=== PATIENT | male | born 1965 | race Hispanic/Latino ===

== ENCOUNTER 2019-10-04 22:02 | Inpatient (IN) | payer OTHER, SELFPAY ==
[2019-10-05 03:33] LABS: Basophils % (Auto) 0.5 % (0.0-1.8); Eosinophils % (Auto) 0.6 % (0.0-4.3); Hematocrit 39.1 % (35.5-45.6); Hemoglobin 13.1 gm/dl (11.8-15.2); Lymphocytes # (Auto) 1.2 K/mm3 (1.2-5.4); Mean Corpuscular HGB Conc 34 % (32-34); Mean Corpuscular Volume 90 fl (84-94); Monocytes # (Auto) 0.4 K/mm3 (0.0-0.8); Monocytes % (Auto) 6.2 % (0.0-7.3); Platelet Count 297 K/mm3 (140-440); Red Blood Count 4.36 M/mm3 (3.65-5.03); Red Cell Distribution Width 13.9 % (13.2-15.2)
[2019-10-05 03:42] LABS: BUN/Creatinine Ratio 12; Blood Urea Nitrogen 7 mg/dL (9-20); Hemolysis Index 0
--- NOTE | 2019-10-05 05:15 | Cat Scan Report ---
Head CT without intravenous contrast INDICATION: Weakness times one day COMPARISON: None FINDINGS: The ventricles are normal in size and position. No hemorrhage or extra-axial fluid collecti on. No edema or mass effect. No focal infarct seen. Portions of the sinuses visualized are clear. No skull fracture identified. IMPRESSION: Negative head CT Automated exposure control was utilized to diminish radiation dose Signer Name: Massimo Ríos MD Signed: 10/05/2019 5:11 AM Workstation Name: [id number]
[2019-10-05 05:18] LABS: Amphetamine Screen,Urine PRESUMPTIVE NEGATIVE; Benzodiazepines Screen,Urine PRESUMPTIVE NEGATIVE; Cannabinoid Screen,Urine PRESUMPTIVE NEGATIVE; Methadone Screen,Urine PRESUMPTIVE NEGATIVE; Opiate Screen,Urine PRESUMPTIVE NEGATIVE
--- NOTE | 2019-10-05 05:24 | Emergency Department Report ---
Chief Complaint: Hyperglycemia Stated Complaint: HYPERGLYCEMIA, LEFT ARM NUMBNESS Time Seen by Provider: 10/05/19 02:53 - HPI History of Present Illness: Patient presents with multiple complaints. Left arm weakness and numbness that has been going on for 1 week. History of IV drug abuse. History of surgery to "clean out infection" to the left arm at [facility] in 2019. Complains of uncontrolled blood sugar. Patient admits to recent cocaine and IV heroin abuse and requesting detox/rehabilitation. - Exam Vital Signs: Vital Signs 10/04/19 22:14 Temperature 97.7 F Pulse Rate 76 Respiratory 18 Rate Blood Pressure 147/90 O2 Sat by Pulse 98 Oximetry MSE screening note: Focused history and physical exam performed. Due to findings the following was ordered: ED Medical Decision Making - Lab Data Result diagrams: 10/05/19 03:10 10/05/19 03:10 ED Disposition for MSE Condition: Stable Referrals: PRIMARY CARE [Primary Care Provider] - 3-5 Days
[2019-10-05 05:53] LABS: Cocaine Screen,Urine PRESUMPTIVE POSITIVE
--- NOTE | 2019-10-05 06:30 | Emergency Department Report ---
HPI - General Chief Complaint: Hyperglycemia Time Seen by Provider: 10/05/19 02:53 - HPI HPI: Room 19 The patient is a 54-year-old male present with a chief complaint of left hand weakness. The patient states he has had intermittent weakness of the left hand since June 2019. The patient states he is also had episodes of intermittent dysarthria for the past couple weeks. Patient states he has had numbness in his left upper extremity and right hand for 1 month but for the past 2 to 3 weeks the weakness in his left hand has been constant. ED Past Medical Hx - Past Medical History Hx Diabetes: Yes (diet controlled) Hx COPD: Yes Additional medical history: HEPATITIS C, Pancreatitis - Surgical History Hx Cholecystectomy: Yes Hx Appendectomy: Yes Additional Surgical History: rhinoplasty, left shoulder surgery - Family History Family history: no significant - Social History Smoking Status: Current Every Day Smoker (1 pack/day) Substance Use Type: Cocaine, Heroin (+ IVDA) - Medications Home Medications: Home Medications Medication Instructions Recorded Confirmed Last Taken Type Albuterol Sulfate [Proventil HFA] 1 - 2 puff IH Q4H PRN #1 hfa.aer.ad 11/13/13 11/21/13 Unknown Rx Azithromycin [Zithromax Z-KISHORE] 250 mg PO DAILY #4 tablet 11/13/13 11/21/13 Unknown Rx Fluticasone/Salmeterol [Advair 1 puff IH BID #1 disk.w.dev 11/13/13 11/21/13 Unknown Rx Diskus 250-50 mcg] Mirtazapine [Remeron] 30 mg PO QHS PRN #10 tab.rapdis 11/13/13 11/21/13 Unknown Rx Mometasone Furoate [Nasonex] 2 spray NS QDAY #1 bottle 11/13/13 11/21/13 Unknown Rx Nicotine [Habitrol] 21 mg TD QDAY #14 patch 11/13/13 11/21/13 Unknown Rx Omeprazole Magnesium [Prilosec Otc] 20 mg PO QDAY #30 tablet. 11/13/13 11/21/13 11/20/13 Rx Oxycodone HCl [Oxycodone] 10 mg PO Q6H PRN #15 tablet 11/13/13 11/21/13 Unknown Rx Potassium Chloride [K-Dur] 20 meq PO QDAY #30 tablet 11/13/13 11/21/13 Unknown Rx Thiamine [Vitamin B-1] 100 mg IV QDAY #30 vial 11/13/13 11/21/13 Unknown Rx atenoloL [Tenormin] 50 mg PO QDAY #30 tablet 11/13/13 11/21/13 Unknown Rx ED Review of Systems ROS: Stated complaint: HYPERGLYCEMIA, LEFT ARM NUMBNESS Other details as noted in HPI Constitutional: no symptoms reported Eyes: denies: eye pain ENT: denies: throat pain Respiratory: no symptoms reported Cardiovascular: denies: chest pain Endocrine: no symptoms reported Gastrointestinal: denies: abdominal pain Genitourinary: denies: dysuria Musculoskeletal: myalgia Neurological: weakness, numbness, other (Dysarthria) Physical Exam - Physical Exam Vital Signs: Vital Signs 10/04/19 22:14 Temperature 97.7 F Pulse Rate 76 Respiratory 18 Rate Blood Pressure 147/90 O2 Sat by Pulse 98 Oximetry Physical Exam: GENERAL: The patient is well-developed male lying on stretcher not appearing to be in acute distress HEENT: Normocephalic. Atraumatic. Extraocular motions are intact. Patient has moist mucous membranes. NECK: Trachea midline CHEST/LUNGS: Clear to auscultation. There is no respiratory distress noted. HEART/CARDIOVASCULAR: Regular. There is no tachycardia. There is no gallop rub or murmur. ABDOMEN: Abdomen is soft, nontender. Patient has normal bowel sounds. There is no abdominal distention. SKIN: There is no rash. There is no edema. There is no diaphoresis. NEURO: The patient is awake, alert, and oriented. The patient is cooperative. Cranial nerves II through XII grossly intact. The patient has normal speech. Patient has 3+/5+ drag out worker on the left, 5+/5+ drag out worker on the right. Patient unable to make completely closed fist on the left. NIHSS= 2 MUSCULOSKELETAL: There is no evidence of acute injury. ED Course Vital Signs 10/04/19 22:14 Temperature 97.7 F Pulse Rate 76 Respiratory 18 Rate Blood Pressure 147/90 O2 Sat by Pulse 98 Oximetry ED Medical Decision Making - Lab Data Result diagrams: 10/05/19 03:10 10/05/19 03:10 Laboratory Tests 03/04/20 03/05/20 03/05/20 22:29 03:10 03:10 WBC 6.6 RBC 4.36 Hgb 13.1 Hct 39.1 MCV 90 MCH 30 MCHC 34 RDW 13.9 Plt Count 297 Lymph % (Auto) 18.0 [place] % (Auto) 6.2 Eos % (Auto) 0.6 Baso % (Auto) 0.5 Lymph # 1.2 [place] # 0.4 Eos # 0.0 Baso # 0.0 Seg Neutrophils % 74.7 H Seg Neutrophils # 5.0 VBG pH Sodium 134 L Potassium 4.1 Chloride 97.3 L Carbon Dioxide 23 Anion Gap 18 BUN 7 L Creatinine 0.6 L Estimated GFR > 60 BUN/Creatinine Ratio 12 Glucose 287 H POC Glucose 297 H Calcium 9.0 TSH Urine Opiates Screen Urine Methadone Screen Ur Barbiturates Screen Ur Phencyclidine Scrn Ur Amphetamines Screen U Benzodiazepines Scrn Urine Cocaine Screen U Marijuana (THC) Screen Drugs of Abuse Note Plasma/Serum Alcohol 10/05/19 10/05/19 10/05/19 03:10 03:10 04:00 WBC RBC Hgb Hct MCV MCH MCHC RDW Plt Count Lymph % (Auto) [place] % (Auto) Eos % (Auto) Baso % (Auto) Lymph # [place] # Eos # Baso # Seg Neutrophils % Seg Neutrophils # VBG pH 7.437 H Sodium Potassium Chloride Carbon Dioxide Anion Gap BUN Creatinine Estimated GFR BUN/Creatinine Ratio Glucose POC Glucose Calcium TSH 0.738 Urine Opiates Screen Presumptive negative Urine Methadone Screen Presumptive negative Ur Barbiturates Screen Presumptive negative Ur Phencyclidine Scrn Presumptive negative Ur Amphetamines Screen Presumptive negative U Benzodiazepines Scrn Presumptive negative Urine Cocaine Screen Presumptive positive U Marijuana (THC) Screen Presumptive negative Drugs of Abuse Note Disclamer Plasma/Serum Alcohol 10/05/19 04:11 WBC RBC Hgb Hct MCV MCH MCHC RDW Plt Count Lymph % (Auto) [place] % (Auto) Eos % (Auto) Baso % (Auto) Lymph # [place] # Eos # Baso # Seg Neutrophils % Seg Neutrophils # VBG pH Sodium Potassium Chloride Carbon Dioxide Anion Gap BUN Creatinine Estimated GFR BUN/Creatinine Ratio Glucose POC Glucose Calcium TSH Urine Opiates Screen Urine Methadone Screen Ur Barbiturates Screen Ur Phencyclidine Scrn Ur Amphetamines Screen U Benzodiazepines Scrn Urine Cocaine Screen U Marijuana (THC) Screen Drugs of Abuse Note Plasma/Serum Alcohol < 0.01 - EKG Data -: EKG Interpreted by [place] EKG shows normal: sinus rhythm Rate: normal - EKG Data When compared to previous EKG there are: previous EKG unavailable Interpretation: other (No ischemic changes seen) - Radiology Data Radiology results: report reviewed (CT head), image reviewed (CT head) Findings [facility] [address] [place] [address] Cat Scan Report Signed Patient: ALLA MENDOZA MR#: [id number] : 1965 Acct:[id number] Age/Sex: 54 / M ADM Date: 10/04/19 Loc: ED Attending Dr: Ordering Physician: TRACY WELCH DO Date of Service: 10/05/19 Procedure(s): CT head/brain wo con Accession Number(s): [id number] cc: TRACY WELCH DO Head CT without intravenous contrast INDICATION: Weakness times one day COMPARISON: None FINDINGS: The ventricles are normal in size and position. No hemorrhage or extra-axial fluid collection. No edema or mass effect. No focal infarct seen. Portions of the sinuses visualized are clear. No skull fracture identified. IMPRESSION: Negative head CT Automated exposure control was utilized to diminish radiation dose Signer Name: Massimo Ríos MD Signed: 10/05/2019 5:11 AM Workstation Name: [id number] Transcribed By: GIOVANNI Dictated By: Massimo Ríos MD Electronically Authenticated By: Massimo Ríos MD Signed Date/Time: 10/05/19510 DD/ 0508 TD/TT: - Differential Diagnosis TIAs, CVA, carpal tunnel syndrome Critical care attestation.: If time is entered above; I have spent that time in minutes in the direct care of this critically ill patient, excluding procedure time. ED Disposition Clinical Impression: Left hand weakness, Neurological deficit, transient Disposition: DC-09 OP ADMIT IP TO THIS HOSP Is pt being admited?: Yes Does the pt Need Aspirin: Yes Condition: Fair Referrals: PRIMARY CARE, [Primary Care Provider] - 3-5 Days Time of Disposition: 07:15 (Hospitalist paged)
[2019-10-05] MEDS ORDERED: ASPIRIN 325 MG TAB PO ONE (06:31)
[2019-10-05] MEDS ORDERED: ONDANSETRON 4 MG ODT TAB PO ONE (07:32)
[2019-10-05] MEDS ORDERED: PROMETHAZINE 25 MG RECT SUPP PR PRN (09:10)
[2019-10-05] MEDS ORDERED: ACETAMINOPHEN 325 MG TAB PO PRN ×2 (09:10)
[2019-10-05] MEDS ORDERED: METOCLOPRAMIDE 10 MG TAB PO PRN (09:10)
[2019-10-05] MEDS ORDERED: MAGNESIUM HYDROXIDE (MOM) ORAL LIQD UDC PO PRN (09:10)
[2019-10-05] MEDS ORDERED: ONDANSETRON 4 MG/2 ML INJ IV PRN ×2 (09:10)
[2019-10-05] MEDS ORDERED: ASPIRIN 325 MG TAB PO SCH (10:00)
[2019-10-05] MEDS ORDERED: ENOXAPARIN 100 MG/1 ML INJ SUB-Q SCH (10:00)
[2019-10-05] MEDS ORDERED: AZITHROMYCIN 250 MG TAB PO SCH (10:00)
[2019-10-05] MEDS ORDERED: THIAMINE 100 MG in SODIUM CHLORIDE 0.9% 50 ML IV SCH (10:00)
[2019-10-05] MEDS ORDERED: THIAMINE 200 MG/2 ML VIAL IV SCH (10:00)
[2019-10-05] MEDS ORDERED: FAMOTIDINE 20 MG/2 ML INJ IV SCH (10:00)
[2019-10-05] MEDS: NICOTINE 21 MG/24 HR PATCH TD SCH (10:22)
[2019-10-05] MEDS: FAMOTIDINE 20 MG TAB PO SCH ×2 (10:23→21:17)
[2019-10-05] MEDS: AZITHROMYCIN 250 MG TAB PO SCH (10:23)
[2019-10-05] MEDS: atenoloL 50 MG TAB PO SCH (10:24)
[2019-10-05] MEDS: ENOXAPARIN 40 MG/0.4 ML INJ SUB-Q SCH (10:25)
[2019-10-05] MEDS: INSULIN REGULAR, HUMAN 100 UNITS/1 ML SUB-Q SCH ×3 (12:40→21:18)
[2019-10-05] MEDS ORDERED: LORazepam 2 MG TAB PO PRN (13:46)
[2019-10-05] MEDS ORDERED: LORazepam 2 MG/ML VIAL IV PRN (13:46)
[2019-10-05 15:29] LABS: Alanine Aminotransferase 19 units/L (7-56); Albumin 3.8 g/dL (3.9-5)
[2019-10-05] MEDS: oxyCODONE /ACETAMINOPHEN 5-325MG TAB PO PRN (15:32)
[2019-10-05] MEDS: LORazepam 2 MG TAB PO PRN ×2 (15:32→21:29)
[2019-10-05 15:34] LABS: Bilirubin,Direct < 0.2 mg/dL (0-0.2)
[2019-10-05] MEDS: QUEtiapine 25 MG TAB PO SCH ×2 (15:34→21:17)
[2019-10-05] MEDS: LORazepam 2 MG/ML VIAL IV PRN (17:36)
--- NOTE | 2019-10-05 19:46 | History and Physical Report ---
History of Present Illness Date of examination: 10/05/19 Date of admission: 10/05/19 07:20 Chief complaint: Left hand weakness and numbness. Inability to move her hand. History of present illness: 54-year-old male with a history of diabetes hypertension presents to the emergency department with left hand weakness with minimal improvement over the past 2 to 3 weeks. Patient describes as intermittent. Was in the opposite right hand and resolved and now persistent in the left hand. Patient stated he had a brace there. Patient at present denies any headaches now. Patient states no vision changes just fatigue at present. No chest pain no abdominal pain. P atient does give a history of drinking up until today. As well as using heroin and cocaine. On a regular basis. Patient had CT scan in the ER which consistent with global atrophy. Patient was then evaluated for TIA rule out CVA. Upon evaluation and continued history. Patient also gives a history of shooting up in left hand wrist area. Patient denied fever chills no cough no nausea vomiting at present. Past History Past Medical History: diabetes, hypertension. denies: acute ND, atrial fib, arrhythmia, anemia, CAD, cancer, COPD, dialysis, DVT, ESRD, heart failure, hepatitis, HIV/AIDS, hyperthyroidism, hyperlipidemia, hypothyroidism, liver disease, migraines, PVD, pulmonary embolism, renal failure, seizures, stroke, sarcoidosis Past Surgical History: No surgical history. denies: abd. aortic aneurysm repair, , hysterectomy Social history: single, Lives alone, smoking, alcohol abuse, IV drug use, full code Family history: hypertension Medications and Allergies Allergies Allergy/AdvReac Type Severity Reaction Status Date / Time No Known Allergies Allergy Verified 10/05/19 08:03 Home Medications Medication Instructions Recorded Confirmed Last Taken Type Albuterol Sulfate [Proventil HFA] 1 - 2 puff IH Q4H PRN #1 hfa.aer.ad 11/13/13 11/21/13 Unknown Rx Azithromycin [Zithromax Z-KISHORE] 250 mg PO DAILY #4 tablet 11/13/13 11/21/13 Unknown Rx Fluticasone/Salmeterol [Advair 1 puff IH BID #1 disk.w.dev 11/13/13 11/21/13 Unknown Rx Diskus 250-50 mcg] Mirtazapine [Remeron] 30 mg PO QHS PRN #10 tab.rapdis 11/13/13 11/21/13 Unknown Rx Mometasone Furoate [Nasonex] 2 spray NS QDAY #1 bottle 11/13/13 11/21/13 Unknown Rx Nicotine [Habitrol] 21 mg TD QDAY #14 patch 11/13/13 11/21/13 Unknown Rx Omeprazole Magnesium [Prilosec Otc] 20 mg PO QDAY #30 tablet. 11/13/13 11/21/13 11/20/13 Rx Oxycodone HCl [Oxycodone] 10 mg PO Q6H PRN #15 tablet 11/13/13 11/21/13 Unknown Rx Potassium Chloride [K-Dur] 20 meq PO QDAY #30 tablet 11/13/13 11/21/13 Unknown Rx Thiamine [Vitamin B-1] 100 mg IV QDAY #30 vial 11/13/13 11/21/13 Unknown Rx atenoloL [Tenormin] 50 mg PO QDAY #30 tablet 11/13/13 11/21/13 Unknown Rx Active Meds: Active Medications Acetaminophen (Tylenol) 650 mg PO Q4H PRN PRN Reason: Pain MILD(1-3)/Fever >100.5/PRECIADO Aspirin (Ecotrin) 325 mg PO QDAY [facility] Atenolol (Tenormin) 50 mg PO QDAY [facility] Last Admin: 10/05/19 10:24 Dose: 50 mg Documented by: Azithromycin (Zithromax) 250 mg PO DAILY [facility] Stop: 10/08/19 10:01 Last Admin: 10/05/19 10:23 Dose: 250 mg Documented by: Bisacodyl (Dulcolax) 10 mg DE QDAY PRN PRN Reason: Constipation Enoxaparin Sodium (Enoxaparin) 40 mg SUB-Q QDAY@1000 [facility] Last Admin: 10/05/19 10:25 Dose: 40 mg Documented by: Famotidine (Pepcid) 20 mg PO BID [facility] Last Admin: 10/05/19 10:23 Dose: 20 mg Documented by: Thiamine HCl 100 mg/ Sodium (Chloride) 51 mls @ 100 mls/hr IV QDAY [facility] Stop: 10/06/19 06:00 Last Admin: 10/05/19 10:26 Dose: 100 mls/hr Documented by: Insulin Human Regular (Humulin R) 0 units SUB-Q ACHS [facility]; Protocol Last Admin: 10/05/19 17:32 Dose: 3 units Documented by: Lorazepam (Ativan) 4 mg IV Q1H PRN PRN Reason: [facility] 16-25 Lorazepam (Ativan) 4 mg PO Q1H PRN PRN Reason: [facility]- 16-25 Lorazepam (Ativan) 2 mg PO Q1H PRN PRN [facility] Last Admin: 10/05/19 15:32 Dose: 2 mg Documented by: Lorazepam (Ativan) 2 mg IV Q1H PRN PRN Reason: [facility] 8-15 Last Admin: 10/05/19 17:36 Dose: 2 mg Documented by: Magnesium Hydroxide (Milk Of Magnesia) 30 ml PO Q4H PRN PRN Reason: Constipation Metoclopramide HCl (Reglan) 10 mg PO Q6H PRN PRN Reason: Nausea And Vomiting Nicotine (Habitrol) 21 mg TD QDAY [facility] Last Admin: 10/05/19 10:22 Dose: 21 mg Documented by: Ondansetron HCl (Zofran) 4 mg IV Q8H PRN PRN Reason: Nausea And Vomiting Oxycodone/Acetaminophen (Percocet 5/325) 1 tab PO Q6H PRN PRN Reason: Pain, Moderate (4-6) Last Admin: 10/05/19 15:32 Dose: 1 tab Documented by: Promethazine HCl (Phenergan) 25 mg DE Q6H PRN PRN Reason: Nausea And Vomiting Quetiapine Fumarate (Seroquel) 25 mg PO BID [facility] Last Admin: 10/05/19 15:34 Dose: 25 mg Documented by: Sodium Chloride (Sodium Chloride Flush Syringe 10 Ml) 10 ml IV BID [facility] Last Admin: 10/05/19 10:24 Dose: 10 ml Documented by: Sodium Chloride (Sodium Chloride Flush Syringe 10 Ml) 10 ml IV PRN PRN PRN Reason: LINE FLUSH Thiamine HCl (Vitamin B-1) 100 mg PO QDAY [facility] Review of Systems Constitutional: weight loss, anorexia, weakness, no weight gain, no fever, no chills, no sweats, no night sweats, no fatigue, no lethargy, no chronic headaches Ears, nose, mouth and throat: hoarseness, swelling in mouth, no ear pain, no decreased hearing, no nose pain, no nasal discharge, no bleeding gums, no mouth pain Cardiovascular: lightheadedness, shortness of breath, high blood pressure, no orthopnea, no palpitations, no rapid/irregular heart beat, no edema, no syncope, no dyspnea on exertion, no paroxysmal nocturnal dyspnea, no claudication, no phlebitis, no leg edema, no decreased exercise tolerance Respiratory: cough, wheezing, no cough with sputum, no excessive sputum, no hemoptysis, no shortness of breath, no dyspnea on exertion, no congestion, no pleurisy, no pain, no pain on inspiration, no snoring, no respiratory infections Gastrointestinal: diarrhea, loss of appetite, early satiety, no nausea, no vomiting, no constipation, no change in bowel habits, no hematemesis, no coffee ground emesis, no melena, no hematochezia, no heartburn, no indigestion, no jaundice, no lactose intolerance Genitourinary Male: no dysuria, no hematuria, no discharge, no genital pain Musculoskeletal: no neck stiffness, no shooting arm pain, no arm numbness/tingling, no leg numbness/tingling, no morning stiffness, no muscle weakness, no muscle cramps, no atrophy, no loss of height Integumentary: no redness, no wounds, no growths, no lesions, no depigmentation Neurological: weakness, numbness, no head injury, no transient paralysis, no paralysis, no parathesias, no tingling, no seizures, no syncope, no tremors, no ataxia, no lack of coordination, no vertigo, no headaches, no migraines, no c onvulsions, no change in speech, no memory loss, no changes in smell/taste, no balance difficulties, no sensory deficit, no double vision, no hearing difficulties, no paralysis Psychiatric: anxiety, change in sleep habits, sleep disturbances, insomnia, hypersomnia, change in appetite, change in libido, no memory loss, no disorientation, no paranoia, no hopelessness, no difficulties concentrating, no sadness/tearfullness Endocrine: no cold intolerance, no excessive thirst, no polydipsia, no polyuria, no proptosis, no deepening of the voice, no thyroid mass, no high blood sugars, no low blood sugars, no fatigue, no other Hematologic/Lymphatic: no easy bruising, no easy bleeding, no thrombophilia Allergic/Immunologic: no angioedema, no gluten intolerance, no seasonal allergies Exam - Constitutional Vitals: Temp Pulse Resp BP Pulse Ox 99.4 F 69 20 137/75 98 10/05/19 16:59 10/05/19 16:59 10/05/19 16:59 10/05/19 16:59 10/05/19 16:59 General appearance: Present: other (Anxious disheveled significant temporal wasting) - EENT Eyes: Present: PERRL, EOM intact ENT: hearing intact, clear oral mucosa, dentition normal, poor dentition, no oropharyngeal erythema, no thrush, no ulcerations - Neck Neck: Present: normal ROM - Respiratory Respiratory: bilateral: diminished - Cardiovascular Rhythm: regular Heart Sounds: Present: S1 & S2 - Extremities Extremities: no ischemia, pulses intact, pulses symmetrical, No edema, normal temperature, normal color Peripheral Pulses: within normal limits - Abdominal General gastrointestinal: Present: soft, non-tender, normal bowel sounds. Absent: hepatomegaly, splenomegaly Male genitourinary: Present: deferred - Rectal Rectal Exam: deferred - Integumentary Integumentary: Present: clear, warm, dry - Musculoskeletal Musculoskeletal: strength equal bilaterally, right sided weakness, left sided weakness - Psychiatric Psychiatric: appropriate mood/affect, memory intact - Neurologic Neurologic: CNII-XII intact, focal deficits, moves all extremities Results - Labs CBC & Chem 7: 10/05/19 03:10 10/05/19 03:10 Labs: Laboratory Last Values WBC 6.6 K/mm3 (4.5-11.0) 10/05/19 03:10 RBC 4.36 M/mm3 (3.65-5.03) 10/05/19 03:10 Hgb 13.1 gm/dl (11.8-15.2) 10/05/19 03:10 Hct 39.1 % (35.5-45.6) 10/05/19 03:10 MCV 90 fl (84-94) 10/05/19 03:10 MCH 30 pg (28-32) 10/05/19 03:10 MCHC 34 % (32-34) 10/05/19 03:10 RDW 13.9 % (13.2-15.2) 10/05/19 03:10 Plt Count 297 K/mm3 (140-440) 10/05/19 03:10 Lymph % (Auto) 18.0 % (13.4-35.0) 10/05/19 03:10 [place] % (Auto) 6.2 % (0.0-7.3) 10/05/19 03:10 Eos % (Auto) 0.6 % (0.0-4.3) 10/05/19 03:10 Baso % (Auto) 0.5 % (0.0-1.8) 10/05/19 03:10 Lymph # 1.2 K/mm3 (1.2-5.4) 10/05/19 03:10 [place] # 0.4 K/mm3 (0.0-0.8) 10/05/19 03:10 Eos # 0.0 K/mm3 (0.0-0.4) 10/05/19 03:10 Baso # 0.0 K/mm3 (0.0-0.1) 10/05/19 03:10 Seg Neutrophils % 74.7 % (40.0-70.0) H 10/05/19 03:10 Seg Neutrophils # 5.0 K/mm3 (1.8-7.7) 10/05/19 03:10 VBG pH 7.437 (7.320-7.420) H 10/05/19 03:10 Sodium 134 mmol/L (137-145) L 10/05/19 03:10 Potassium 4.1 mmol/L (3.6-5.0) 10/05/19 03:10 Chloride 97.3 mmol/L (98-107) L 10/05/19 03:10 Carbon Dioxide 23 mmol/L (22-30) 10/05/19 03:10 Anion Gap 18 mmol/L 10/05/19 03:10 BUN 7 mg/dL (9-20) L 10/05/19 03:10 Creatinine 0.6 mg/dL (0.8-1.5) L 10/05/19 03:10 Estimated GFR > 60 ml/min 10/05/19 03:10 BUN/Creatinine Ratio 12 % 10/05/19 03:10 Glucose 287 mg/dL (75-100) H 10/05/19 03:10 POC Glucose 203 (70-105) H 10/05/19 17:09 Calcium 9.0 mg/dL (8.4-10.2) 10/05/19 03:10 Phosphorus 3.20 mg/dL (2.5-4.5) 10/05/19 14:21 Total Bilirubin 0.40 mg/dL (0.1-1.2) 10/05/19 14:21 Direct Bilirubin < 0.2 mg/dL (0-0.2) 10/05/19 14:21 Indirect Bilirubin 0.2 mg/dL 10/05/19 14:21 AST 26 units/L (5-40) 10/05/19 14:21 ALT 19 units/L (7-56) 10/05/19 14:21 Alkaline Phosphatase 93 units/L (35-129) 10/05/19 14:21 Ammonia 48.0 umol/L (25-60) 10/05/19 14:21 Total Protein 6.8 g/dL (6.3-8.2) 10/05/19 14:21 Albumin 3.8 g/dL (3.9-5) L 10/05/19 14:21 Albumin/Globulin Ratio 1.3 % 10/05/19 14:21 TSH 0.738 mlU/mL (0.270-4.200) 10/05/19 03:10 Urine Opiates Screen Presumptive negative 10/05/19 04:00 Urine Methadone Screen Presumptive negative 10/05/19 04:00 Ur Barbiturates Screen Presumptive negative 10/05/19 04:00 Ur Phencyclidine Scrn Presumptive negative 10/05/19 04:00 Ur Amphetamines Screen Presumptive negative 10/05/19 04:00 U Benzodiazepines Scrn Presumptive negative 10/05/19 04:00 Urine Cocaine Screen Presumptive positive 10/05/19 04:00 U Marijuana (THC) Screen Presumptive negative 10/05/19 04:00 Drugs of Abuse Note Disclamer 10/05/19 04:00 Plasma/Serum Alcohol < 0.01 % (0-0.07) 10/05/19 04:11 Assessment and Plan Advance Directives: Yes VTE prophylaxis?: Chemical Plan of care discussed with patient/family: Yes - Patient Problems (1) Left hand weakness Current Visit: Yes Status: Acute Plan to address problem: Left hand weakness. Patient can move hand. It appears to be swollen on the dorsal aspect of wrist just above and below most distal part of ulnar bone. Patient does have some areas where he appears to have injected needle. Potentia lly could be sepsis or muscle injury. It does have erythema around the hand. Will start initially on antibiotic coverage. Unlikely TIA at this time. Patient can move fingers. Appear to be more musculoskeletal in nature now. (2) Neurological deficit, transient Current Visit: Yes Status: Acute Plan to address problem: Neurologic deficit does not appear to have neurologic deficit now. This appears to be more local at the hand area. CT scan had evaluation not consistent with this TIA. Patient also moving hand. The pain and deficit is mostly in the wrist area where the erythema is with IV drug use at that site. Need to rule out cellulitis follow blood culture data. (3) Alcohol abuse Current Visit: No Status: Acute Plan to address problem: Patient does have some moving jerking. Was quick to state he has been on heroin recently and has not drink up until today. Will start patient on CIWA pr otocol. Will start patient on Seroquel for recent hallucinations. (4) Tobacco abuse Current Visit: No Status: Acute Plan to address problem: Continue nicotine patch. (5) COPD (chronic obstructive pulmonary disease) Current Visit: No Status: Chronic Plan to address problem: Patient COPD exacerbation this is not underlying etiology at this point. Continue as needed nebulizer treatments and metered-dose inhaler as well. Oxygen is indicated.
[2019-10-05 20:46] LABS: Alanine Aminotransferase 17 units/L (7-56); Albumin 3.4 g/dL (3.9-5); BUN/Creatinine Ratio 15; Blood Urea Nitrogen 15 mg/dL (9-20); Hemolysis Index 20
[2019-10-05] MEDS: INSULIN GLARGINE 100 UNITS/ML SUB-Q SCH (22:54)
[2019-10-06 05:37] LABS: BUN/Creatinine Ratio 19; Blood Urea Nitrogen 13 mg/dL (9-20); Calcium 9.2 mg/dL (8.4-10.2); Hemolysis Index 6
[2019-10-06 07:35] LABS: Basophils % (Auto) 0.3 % (0.0-1.8); Eosinophils % (Auto) 0.3 % (0.0-4.3); Hematocrit 44.2 % (35.5-45.6); Hemoglobin 14.8 gm/dl (11.8-15.2); Lymphocytes # (Auto) 1.4 K/mm3 (1.2-5.4); Lymphocytes % (Auto) 20.9 % (13.4-35.0); Mean Corpuscular HGB Conc 34 % (32-34); Mean Corpuscular Volume 89 fl (84-94); Monocytes # (Auto) 0.4 K/mm3 (0.0-0.8); Monocytes % (Auto) 6.5 % (0.0-7.3); Platelet Count 361 K/mm3 (140-440); Red Blood Count 4.97 M/mm3 (3.65-5.03); Red Cell Distribution Width 13.8 % (13.2-15.2)
[2019-10-06] MEDS: AZITHROMYCIN 250 MG TAB PO SCH (09:36)
[2019-10-06] MEDS: FAMOTIDINE 20 MG TAB PO SCH ×2 (09:36→21:51)
[2019-10-06] MEDS: ASPIRIN EC 325 MG TAB PO SCH (09:36)
[2019-10-06] MEDS: atenoloL 50 MG TAB PO SCH (09:36)
[2019-10-06] MEDS: THIAMINE 100 MG TAB PO SCH (09:36)
[2019-10-06] MEDS: QUEtiapine 25 MG TAB PO SCH ×2 (09:36→21:51)
[2019-10-06] MEDS: ENOXAPARIN 40 MG/0.4 ML INJ SUB-Q SCH (09:36)
[2019-10-06] MEDS: NICOTINE 21 MG/24 HR PATCH TD SCH (09:37)
[2019-10-06] MEDS: INSULIN REGULAR, HUMAN 100 UNITS/1 ML SUB-Q SCH ×4 (09:37→21:52)
--- NOTE | 2019-10-06 12:37 | Progress Note ---
Assessment and Plan Assessment and plan: CVA. Patient exhibits more signs and symptoms of TIA. Patient has no lateralizing signs or symptoms presently. No weakness. CT scan head negative. Await PT evaluation for disposition. EtOH abuse. Continue CIWA protocol. Polysubstance abuse. Patient with history of heroin and cocaine abuse. Con tinue supportive care and withdrawal protocols. Tobacco abuse. Patient will be counseled on tobacco cessation. History Interval history: No new issues overnight. Hospitalist Physical - Constitutional Vitals: Temp Pulse Resp BP Pulse Ox 98.3 F 70 20 138/74 99 10/06/19 06:40 10/06/19 06:40 10/06/19 06:40 10/06/19 06:40 10/05/19 22:46 General appearance: Present: other (Anxious disheveled significant temporal wasting) - EENT Eyes: Present: PERRL, EOM intact ENT: hearing intact, clear oral mucosa, dentition normal - Neck Neck: Present: supple, normal ROM - Respiratory Respiratory effort: normal Respiratory: bilateral: CTA - Cardiovascular Rhythm: regular Heart Sounds: Present: S1 & S2. Absent: gallop, rub - Extremities Extremities: no ischemia, No edema, Full ROM - Abdominal General gastrointestinal: soft, non-tender, non-distended, normal bowel sounds - Integumentary Integumentary: Present: clear, warm, dry - Neurologic Neurologic: CNII-XII intact, moves all extremities Results - Labs CBC & Chem 7: 10/06/19 07:10 10/06/19 04:48 Labs: Laboratory Last Values WBC 6.5 K/mm3 (4.5-11.0) 10/06/19 07:10 RBC 4.97 M/mm3 (3.65-5.03) 10/06/19 07:10 Hgb 14.8 gm/dl (11.8-15.2) 10/06/19 07:10 Hct 44.2 % (35.5-45.6) 10/06/19 07:10 MCV 89 fl (84-94) 10/06/19 07:10 MCH 30 pg (28-32) 10/06/19 07:10 MCHC 34 % (32-34) 10/06/19 07:10 RDW 13.8 % (13.2-15.2) 10/06/19 07:10 Plt Count 361 K/mm3 (140-440) 10/06/19 07:10 Lymph % (Auto) 20.9 % (13.4-35.0) 10/06/19 07:10 [place] % (Auto) 6.5 % (0.0-7.3) 10/06/19 07:10 Eos % (Auto) 0.3 % (0.0-4.3) 10/06/19 07:10 Baso % (Auto) 0.3 % (0.0-1.8) 10/06/19 07:10 Lymph # 1.4 K/mm3 (1.2-5.4) 10/06/19 07:10 [place] # 0.4 K/mm3 (0.0-0.8) 10/06/19 07:10 Eos # 0.0 K/mm3 (0.0-0.4) 10/06/19 07:10 Baso # 0.0 K/mm3 (0.0-0.1) 10/06/19 07:10 Seg Neutrophils % 72.0 % (40.0-70.0) H 10/06/19 07:10 Seg Neutrophils # 4.7 K/mm3 (1.8-7.7) 10/06/19 07:10 VBG pH 7.437 (7.320-7.420) H 10/05/19 03:10 Sodium 136 mmol/L (137-145) L D 10/06/19 04:48 Potassium 4.1 mmol/L (3.6-5.0) 10/06/19 04:48 Chloride 99.9 mmol/L (98-107) 10/06/19 04:48 Carbon Dioxide 22 mmol/L (22-30) 10/06/19 04:48 Anion Gap 18 mmol/L 10/06/19 04:48 BUN 13 mg/dL (9-20) 10/06/19 04:48 Creatinine 0.7 mg/dL (0.8-1.5) L 10/06/19 04:48 Estimated GFR > 60 ml/min 10/06/19 04:48 BUN/Creatinine Ratio 19 % 10/06/19 04:48 Glucose 147 mg/dL (75-100) H 10/06/19 04:48 POC Glucose 369 (70-105) H 10/06/19 11:43 Calcium 9.2 mg/dL (8.4-10.2) 10/06/19 04:48 Phosphorus 3.20 mg/dL (2.5-4.5) 10/05/19 14:21 Total Bilirubin 0.20 mg/dL (0.1-1.2) 10/05/19 20:14 Direct Bilirubin < 0.2 mg/dL (0-0.2) 10/05/19 14:21 Indirect Bilirubin 0.2 mg/dL 10/05/19 14:21 AST 19 units/L (5-40) 10/05/19 20:14 ALT 17 units/L (7-56) 10/05/19 20:14 Alkaline Phosphatase 93 units/L (35-129) 10/05/19 20:14 Ammonia 48.0 umol/L (25-60) 10/05/19 14:21 Total Protein 6.9 g/dL (6.3-8.2) 10/05/19 20:14 Albumin 3.4 g/dL (3.9-5) L 10/05/19 20:14 Albumin/Globulin Ratio 1.0 % 10/05/19 20:14 TSH 0.738 mlU/mL (0.270-4.200) 10/05/19 03:10 Urine Opiates Screen Presumptive negative 10/05/19 04:00 Urine Methadone Screen Presumptive negative 10/05/19 04:00 Ur Barbiturates Screen Presumptive negative 10/05/19 04:00 Ur Phencyclidine Scrn Presumptive negative 10/05/19 04:00 Ur Amphetamines Screen Presumptive negative 10/05/19 04:00 U Benzodiazepines Scrn Presumptive negative 10/05/19 04:00 Urine Cocaine Screen Presumptive positive 10/05/19 04:00 U Marijuana (THC) Screen Presumptive negative 10/05/19 04:00 Drugs of Abuse Note Disclamer 10/05/19 04:00 Plasma/Serum Alcohol < 0.01 % (0-0.07) 10/05/19 04:11 Active Medications - Current Medications Current Medications: Generic Name Dose Route Start Last Admin Trade Name Freq PRN Reason Stop Dose Admin Acetaminophen 650 mg 10/05/19 09:10 Tylenol PO Q4H PRN Pain MILD(1-3)/Fever >100.5/PRECIADO Aspirin 325 mg 10/06/19 10:00 10/06/19 09:36 Ecotrin PO 325 mg QDAY RADHA Administration Atenolol 50 mg 10/05/19 10:00 10/06/19 09:36 Tenormin PO 50 mg QDAY RADHA Administration Azithromycin 250 mg 10/05/19 10:00 10/06/19 09:36 Zithromax PO 10/08/19 10:01 250 mg DAILY RADHA Administration Bisacodyl 10 mg 10/05/19 09:10 Dulcolax ME QDAY PRN Constipation Enoxaparin Sodium 40 mg 10/05/19 10:00 10/06/19 09:36 Enoxaparin SUB-Q 40 mg QDAY@1000 RADHA Administration Famotidine 20 mg 10/05/19 10:00 10/06/19 09:36 Pepcid PO 20 mg BID RADHA Administration Insulin Glargine 15 units 10/05/19 22:00 10/05/19 22:54 Lantus SUB-Q 15 units QHS RADHA Administration Insulin Human Regular 0 units 10/05/19 12:30 10/06/19 09:37 Humulin R SUB-Q 3 units ACHS RADHA Administration Protocol Lorazepam 4 mg 10/05/19 13:46 Ativan IV Q1H PRN CIWA-Ar 16-25 Lorazepam 4 mg 10/05/19 13:46 Ativan PO Q1H PRN CIWA-Ar 16-25 Lorazepam 2 mg 10/05/19 14:05 10/05/19 21:29 Ativan PO 2 mg Q1H PRN Administration CIWA-Ar 8-15 Lorazepam 2 mg 10/05/19 15:47 10/05/19 17:36 Ativan IV 2 mg Q1H PRN Administration CIWA-Ar 8-15 Magnesium Hydroxide 30 ml 10/05/19 09:10 Milk Of Magnesia PO Q4H PRN Constipation Metoclopramide HCl 10 mg 10/05/19 09:10 Reglan PO Q6H PRN Nausea And Vomiting Nicotine 21 mg 10/05/19 10:00 10/06/19 09:37 Habitrol TD 21 mg QDAY RADHA Administration Ondansetron HCl 4 mg 10/05/19 09:10 Zofran IV Q8H PRN Nausea And Vomiting Oxycodone/Acetaminophen 1 tab 10/05/19 09:10 10/05/19 15:32 Percocet 5/325 PO 1 tab Q6H PRN Administration Pain, Moderate (4-6) Promethazine HCl 25 mg 10/05/19 09:10 Phenergan ME Q6H PRN Nausea And Vomiting Quetiapine Fumarate 25 mg 10/05/19 14:00 10/06/19 09:36 Seroquel PO 25 mg BID RADHA Administration Sodium Chloride 10 ml 10/05/19 10:00 10/05/19 21:17 Sodium Chloride Flush Syringe 10 Ml IV 10 ml BID RADHA Administration Sodium Chloride 10 ml 10/05/19 09:10 Sodium Chloride Flush Syringe 10 Ml IV PRN PRN LINE FLUSH Thiamine HCl 100 mg 10/06/19 10:00 10/06/19 09:36 Vitamin B-1 PO 100 mg QDAY RADHA Administration
[2019-10-06] MEDS: oxyCODONE /ACETAMINOPHEN 5-325MG TAB PO PRN (14:19)
[2019-10-06] MEDS: LORazepam 2 MG TAB PO PRN (14:27)
--- NOTE | 2019-10-06 15:15 | Consultation ---
History of Present Illness - Reason for Consult Consult date: 10/06/19 Reason for consult: suicidal ideation - Chief Complaint Chief complaint: depression, suicidal ideation, hallucinations, drug and alcohol use - History of Present Psychiatric Illness Felicita Zhong is a 54y/o male patient who states he came to the hospital for " left hand pain." During my interview today, the patient is lying in bed. Awake. A/o x 3. He makes intermittent eye contact. A sitter is at bedside. The patient states to me "I'm just tired of being here on the planet." He says, "I'm depressed, I'm tired of being sick and I can't work anymore." Mr. Zhong says "I cant work because I can't use my left hand." He says he has been "suicidal for about 2 weeks." The patient verbalizes having suicidal thoughts during the interview, and states he has an active plan. He states, "I will take some pills. I have muscle relaxers at home." He says he has "attempted suicide two other times by cutting his wrist." He raises his arm and shows me some scars. He says he "was never admitted for the attempts because I hid them." He says he has been off of his medications for "several months." The patient complains of hearing "hearing voices" that say "weird things." He says "they keep saying do it. It's the right thing to do. Give it up." When asking him what were the voices referring to, he replied, "I'm not sure." He also says he sees "people that are not really there. Demons. They are smiling at me and calling me." The patient admits to using "meth, crack, cocaine, and heroine." He also says he "drinks about two to three 24 oz of beer a day." He says his last drink was "the day before yesterday." Mr. Zhong says he's having symptoms that he thinks is "withdrawals from heroine." He complains of "nausea, jerking, headaches, and anxiety." The patient says his "appetite is not that good." He also says he "doesn't sleep that good." PAST PSYCHIATRIC HISTORY: Diagnoses: Bipolar, schizophrenia, PTSD Suicide attempts or Self-harm behavior: twice Prior psychiatric hospitalizations: denies Substance Abuse history: Cocaine, crack, meth, heroine, alcohol Previous psychiatric medications tried: Couldn't remember Outpatient treatment: it's been awhile PAST MEDICAL HISTORY: None reported Family Psychiatric History None reported or documented SOCIAL HISTORY Marital Status: Single Living Arrangements: Homeless Employment Status: Disabled Access to guns/weapons: Denies Education: 8th History of Abuse: Denies ROS: Constitutional: Negative for weight loss ENT: Negative for stridor Respiratory: Negative for cough or hemoptysis All other systems reviewed and are negative MENTAL STATUS General Appearance: Dressed appropriately Behavior: calm and cooperative, intermittent eye contact Mood: "depressed" Affect: Restricted Thought Process: Goal-directed Speech: Normal tone and pace Suicidal Ideation: Yes, with plan to OD Homicidal Ideation: Denies Hallucinations: A/V Delusions: None elicited Insight and Judgment: Limited Memory/Cognition: Fair Diagnoses: Bipolar Disorder, Current Episode Depressed, Severe w/Psychotic Features Plan Continue home medications: Continue CIWA Zoloft 25mg po daily Seroquel 50mg po BID Depakote DR 125mg po daily Trazodone 50mg po qhs Medical: Per primary Sitter: Defer to primary Disposition: The patient meets the requirement for acute inpatient hospitalization. He may transfer to an acute psychiatric facility once medically clear. The treatment plan, including medication benefits and side effects were discussed with the patient. He verbalizes understanding and agreement of plan. Will continue to follow the patient until transferred or until her condition improves enough for discharge Please call with any questions or concerns. Thank you for this consult. Medications and Allergies Allergies Allergy/AdvReac Type Severity Reaction Status Date / Time No Known Allergies Allergy Verified 10/05/19 08:03 Home Medications Medication Instructions Recorded Confirmed Last Taken Type Albuterol Sulfate [Proventil HFA] 1 - 2 puff IH Q4H PRN #1 hfa.aer.ad 11/13/13 11/21/13 Unknown Rx Azithromycin [Zithromax Z-KISHORE] 250 mg PO DAILY #4 tablet 11/13/13 11/21/13 Unknown Rx Fluticasone/Salmeterol [Advair 1 puff IH BID #1 disk.w.dev 11/13/13 11/21/13 Unknown Rx Diskus 250-50 mcg] Mirtazapine [Remeron] 30 mg PO QHS PRN #10 tab.rapdis 11/13/13 11/21/13 Unknown Rx Mometasone Furoate [Nasonex] 2 spray NS QDAY #1 bottle 11/13/13 11/21/13 Unknown Rx Nicotine [Habitrol] 21 mg TD QDAY #14 patch 11/13/13 11/21/13 Unknown Rx Omeprazole Magnesium [Prilosec Otc] 20 mg PO QDAY #30 tablet. 11/13/13 11/21/13 11/20/13 Rx Oxycodone HCl [Oxycodone] 10 mg PO Q6H PRN #15 tablet 11/13/13 11/21/13 Unknown Rx Potassium Chloride [K-Dur] 20 meq PO QDAY #30 tablet 11/13/13 11/21/13 Unknown Rx Thiamine [Vitamin B-1] 100 mg IV QDAY #30 vial 11/13/13 11/21/13 Unknown Rx atenoloL [Tenormin] 50 mg PO QDAY #30 tablet 11/13/13 11/21/13 Unknown Rx Active Meds: Active Medications Acetaminophen (Tylenol) 650 mg PO Q4H PRN PRN Reason: Pain MILD(1-3)/Fever >100.5/PRECIADO Aspirin (Ecotrin) 325 mg PO QDAY [facility] Last Admin: 10/06/19 09:36 Dose: 325 mg Documented by: Atenolol (Tenormin) 50 mg PO QDAY [facility] Last Admin: 10/06/19 09:36 Dose: 50 mg Documented by: Azithromycin (Zithromax) 250 mg PO DAILY [facility] Stop: 10/08/19 10:01 Last Admin: 10/06/19 09:36 Dose: 250 mg Documented by: Bisacodyl (Dulcolax) 10 mg PA QDAY PRN PRN Reason: Constipation Enoxaparin Sodium (Enoxaparin) 40 mg SUB-Q QDAY@1000 [facility] Last Admin: 10/06/19 09:36 Dose: 40 mg Documented by: Famotidine (Pepcid) 20 mg PO BID [facility] Last Admin: 10/06/19 09:36 Dose: 20 mg Documented by: Insulin Glargine (Lantus) 15 units SUB-Q QHS [facility] Last Admin: 10/05/19 22:54 Dose: 15 units Documented by: Insulin Human Regular (Humulin R) 0 units SUB-Q ACHS [facility]; Protocol Last Admin: 10/06/19 12:52 Dose: 8 units Documented by: Lorazepam (Ativan) 4 mg IV Q1H PRN PRN Reason: CIWA-Ar 16-25 Lorazepam (Ativan) 4 mg PO Q1H PRN PRN Reason: CIWA-Ar 16-25 Lorazepam (Ativan) 2 mg PO Q1H PRN PRN Reason: CIANA-Guillaume 8-15 Last Admin: 10/06/19 14:27 Dose: 2 mg Documented by: Lorazepam (Ativan) 2 mg IV Q1H PRN PRN Reason: MEG-Guillaume 8-15 Last Admin: 10/05/19 17:36 Dose: 2 mg Documented by: Magnesium Hydroxide (Milk Of Magnesia) 30 ml PO Q4H PRN PRN Reason: Constipation Metoclopramide HCl (Reglan) 10 mg PO Q6H PRN PRN Reason: Nausea And Vomiting Nicotine (Habitrol) 21 mg TD QDAY [facility] Last Admin: 10/06/19 09:37 Dose: 21 mg Documented by: Ondansetron HCl (Zofran) 4 mg IV Q8H PRN PRN Reason: Nausea And Vomiting Oxycodone/Acetaminophen (Percocet 5/325) 1 tab PO Q6H PRN PRN Reason: Pain, Moderate (4-6) Last Admin: 10/06/19 14:19 Dose: 1 tab Documented by: Promethazine HCl (Phenergan) 25 mg PA Q6H PRN PRN Reason: Nausea And Vomiting Quetiapine Fumarate (Seroquel) 25 mg PO BID [facility] Last Admin: 10/06/19 09:36 Dose: 25 mg Documented by: Sodium Chloride (Sodium Chloride Flush Syringe 10 Ml) 10 ml IV BID [facility] Last Admin: 10/05/19 21:17 Dose: 10 ml Documented by: Sodium Chloride (Sodium Chloride Flush Syringe 10 Ml) 10 ml IV PRN PRN PRN Reason: LINE FLUSH Thiamine HCl (Vitamin B-1) 100 mg PO QDAY [facility] Last Admin: 10/06/19 09:36 Dose: 100 mg Documented by: Mental Status Exam - Vital signs Last Vital Signs Temp 98.0 F 10/06/19 12:11 Pulse 61 10/06/19 12:11 Resp 14 10/06/19 12:11 BP 108/64 10/06/19 12:11 Pulse Ox 100 10/06/19 12:11 Results Result Diagrams: 10/06/19 07:10 10/06/19 04:48 Abnormal lab results 10/05/19 10/05/19 10/05/19 Range/Units 14:21 17:09 20:14 Seg Neutrophils % (40.0-70.0) % Sodium 128 L (137-145) mmol/L Chloride 94.2 L (98-107) mmol/L Carbon Dioxide 19 L (22-30) mmol/L Creatinine (0.8-1.5) mg/dL Glucose 274 H (75-100) mg/dL POC Glucose 203 H (70-105) Albumin 3.8 L 3.4 L (3.9-5) g/dL 10/05/19 10/06/19 10/06/19 Range/Units 21:21 04:48 07:10 Seg Neutrophils % 72.0 H (40.0-70.0) % Sodium 136 L D (137-145) mmol/L Chloride (98-107) mmol/L Carbon Dioxide (22-30) mmol/L Creatinine 0.7 L (0.8-1.5) mg/dL Glucose 147 H (75-100) mg/dL POC Glucose 257 H (70-105) Albumin (3.9-5) g/dL 10/06/19 10/06/19 Range/Units 08:21 11:43 Seg Neutrophils % (40.0-70.0) % Sodium (137-145) mmol/L Chloride (98-107) mmol/L Carbon Dioxide (22-30) mmol/L Creatinine (0.8-1.5) mg/dL Glucose (75-100) mg/dL POC Glucose 227 H 369 H (70-105) Albumin (3.9-5) g/dL All other labs normal.
[2019-10-06] MEDS: DIVALPROEX DR 125 MG TAB PO SCH ×2 (16:00→22:14)
[2019-10-06] MEDS: SERTRALINE 25 MG TAB PO SCH (19:41)
[2019-10-06] MEDS: traZODone 50 MG TAB PO SCH (21:52)
[2019-10-06] MEDS: INSULIN GLARGINE 100 UNITS/ML SUB-Q SCH (21:52)
[2019-10-06] MEDS: LORazepam 2 MG/ML VIAL IV PRN (23:09)
[2019-10-07] MEDS: INSULIN REGULAR, HUMAN 100 UNITS/1 ML SUB-Q SCH ×4 (09:15→22:13)
[2019-10-07] MEDS: FAMOTIDINE 20 MG TAB PO SCH ×2 (10:48→22:11)
[2019-10-07] MEDS: ASPIRIN EC 325 MG TAB PO SCH (10:48)
[2019-10-07] MEDS: DIVALPROEX DR 125 MG TAB PO SCH ×2 (10:50→22:17)
[2019-10-07] MEDS: QUEtiapine 25 MG TAB PO SCH (10:51)
[2019-10-07] MEDS: AZITHROMYCIN 250 MG TAB PO SCH (10:51)
[2019-10-07] MEDS: NICOTINE 21 MG/24 HR PATCH TD SCH (10:52)
[2019-10-07] MEDS: SERTRALINE 25 MG TAB PO SCH (11:03)
[2019-10-07] MEDS: atenoloL 50 MG TAB PO SCH (11:04)
[2019-10-07] MEDS: THIAMINE 100 MG TAB PO SCH (11:05)
[2019-10-07] MEDS: LORazepam 2 MG/ML VIAL IV PRN (11:10)
[2019-10-07] MEDS: ENOXAPARIN 40 MG/0.4 ML INJ SUB-Q SCH (11:14)
--- NOTE | 2019-10-07 11:48 | Progress Note ---
Assessment and Plan Assessment and plan: Suicidal ideation. CVA. Patient has no lateralizing signs or symptoms presently. No weakness. CT scan head negative. EtOH abuse. Continue CIWA protocol. Polysubstance abuse. Patient with history of heroin and cocaine abuse. Continue supportive care and withdrawal protocols. Tobacco abuse. Patient counseled on tobacco cessation. 3/7check MRI and echocardiogram for further evaluation regarding CVA symptoms. Patient will be continued on CIWA protocol. Psychiatry evaluated the patient an d initiated Zoloft, Seroquel, Depakote and trazodone. Also, psychiatry recommends acute inpatient psychiatric facility at discharge. History Interval history: No new issues overnight. Hospitalist Physical - Constitutional Vitals: Temp Pulse Resp BP Pulse Ox 98.0 F 73 19 149/71 98 10/07/19 10:44 10/07/19 11:04 10/07/19 10:44 10/07/19 11:04 10/07/19 10:44 General appearance: Present: other (Anxious disheveled significant temporal wasting) - EENT Eyes: Present: PERRL, EOM intact ENT: hearing intact, clear oral mucosa, dentition normal - Neck Neck: Present: supple, normal ROM - Respiratory Respiratory effort: normal Respiratory: bilateral: CTA - Cardiovascular Rhythm: regular Heart Sounds: Present: S1 & S2. Absent: gallop, rub - Extremities Extremities: no ischemia, No edema, Full ROM - Abdominal General gastrointestinal: soft, non-tender, non-distended, normal bowel sounds - Integumentary Integumentary: Present: clear, warm, dry - Neurologic Neurologic: CNII-XII intact, moves all extremities Results - Labs CBC & Chem 7: 10/06/19 07:10 10/06/19 04:48 Labs: Laboratory Last Values WBC 6.5 K/mm3 (4.5-11.0) 10/06/19 07:10 RBC 4.97 M/mm3 (3.65-5.03) 10/06/19 07:10 Hgb 14.8 gm/dl (11.8-15.2) 10/06/19 07:10 Hct 44.2 % (35.5-45.6) 10/06/19 07:10 MCV 89 fl (84-94) 10/06/19 07:10 MCH 30 pg (28-32) 10/06/19 07:10 MCHC 34 % (32-34) 10/06/19 07:10 RDW 13.8 % (13.2-15.2) 10/06/19 07:10 Plt Count 361 K/mm3 (140-440) 10/06/19 07:10 Lymph % (Auto) 20.9 % (13.4-35.0) 10/06/19 07:10 [place] % (Auto) 6.5 % (0.0-7.3) 10/06/19 07:10 Eos % (Auto) 0.3 % (0.0-4.3) 10/06/19 07:10 Baso % (Auto) 0.3 % (0.0-1.8) 10/06/19 07:10 Lymph # 1.4 K/mm3 (1.2-5.4) 10/06/19 07:10 [place] # 0.4 K/mm3 (0.0-0.8) 10/06/19 07:10 Eos # 0.0 K/mm3 (0.0-0.4) 10/06/19 07:10 Baso # 0.0 K/mm3 (0.0-0.1) 10/06/19 07:10 Seg Neutrophils % 72.0 % (40.0-70.0) H 10/06/19 07:10 Seg Neutrophils # 4.7 K/mm3 (1.8-7.7) 10/06/19 07:10 VBG pH 7.437 (7.320-7.420) H 10/05/19 03:10 Sodium 136 mmol/L (137-145) L D 10/06/19 04:48 Potassium 4.1 mmol/L (3.6-5.0) 10/06/19 04:48 Chloride 99.9 mmol/L (98-107) 10/06/19 04:48 Carbon Dioxide 22 mmol/L (22-30) 10/06/19 04:48 Anion Gap 18 mmol/L 10/06/19 04:48 BUN 13 mg/dL (9-20) 10/06/19 04:48 Creatinine 0.7 mg/dL (0.8-1.5) L 10/06/19 04:48 Estimated GFR > 60 ml/min 10/06/19 04:48 BUN/Creatinine Ratio 19 % 10/06/19 04:48 Glucose 147 mg/dL (75-100) H 10/06/19 04:48 POC Glucose 185 (70-105) H 10/07/19 07:36 Calcium 9.2 mg/dL (8.4-10.2) 10/06/19 04:48 Phosphorus 3.20 mg/dL (2.5-4.5) 10/05/19 14:21 Total Bilirubin 0.20 mg/dL (0.1-1.2) 10/05/19 20:14 Direct Bilirubin < 0.2 mg/dL (0-0.2) 10/05/19 14:21 Indirect Bilirubin 0.2 mg/dL 10/05/19 14:21 AST 19 units/L (5-40) 10/05/19 20:14 ALT 17 units/L (7-56) 10/05/19 20:14 Alkaline Phosphatase 93 units/L (35-129) 10/05/19 20:14 Ammonia 48.0 umol/L (25-60) 10/05/19 14:21 Total Protein 6.9 g/dL (6.3-8.2) 10/05/19 20:14 Albumin 3.4 g/dL (3.9-5) L 10/05/19 20:14 Albumin/Globulin Ratio 1.0 % 10/05/19 20:14 TSH 0.738 mlU/mL (0.270-4.200) 10/05/19 03:10 Urine Opiates Screen Presumptive negative 10/05/19 04:00 Urine Methadone Screen Presumptive negative 10/05/19 04:00 Ur Barbiturates Screen Presumptive negative 10/05/19 04:00 Ur Phencyclidine Scrn Presumptive negative 10/05/19 04:00 Ur Amphetamines Screen Presumptive negative 10/05/19 04:00 U Benzodiazepines Scrn Presumptive negative 10/05/19 04:00 Urine Cocaine Screen Presumptive positive 10/05/19 04:00 U Marijuana (THC) Screen Presumptive negative 10/05/19 04:00 Drugs of Abuse Note Disclamer 10/05/19 04:00 Plasma/Serum Alcohol < 0.01 % (0-0.07) 10/05/19 04:11 Active Medications - Current Medications Current Medications: Generic Name Dose Route Start Last Admin Trade Name Freq PRN Reason Stop Dose Admin Acetaminophen 650 mg 10/05/19 09:10 Tylenol PO Q4H PRN Pain MILD(1-3)/Fever >100.5/PRECIADO Aspirin 325 mg 10/06/19 10:00 10/07/19 10:48 Ecotrin PO 325 mg QDAY RADHA Administration Atenolol 50 mg 10/05/19 10:00 10/07/19 11:04 Tenormin PO 50 mg QDAY RADHA Administration Azithromycin 250 mg 10/05/19 10:00 10/07/19 10:51 Zithromax PO 10/08/19 10:01 250 mg DAILY RADHA Administration Bisacodyl 10 mg 10/05/19 09:10 Dulcolax SC QDAY PRN Constipation Divalproex Sodium 125 mg 10/06/19 16:00 10/07/19 10:[address] PO 125 mg BID RADHA Administration Enoxaparin Sodium 40 mg 10/05/19 10:00 10/07/19 11:14 Enoxaparin SUB-Q 40 mg QDAY@1000 RADHA Administration Famotidine 20 mg 10/05/19 10:00 10/07/19 10:48 Pepcid PO 20 mg BID RADHA Administration Insulin Glargine 15 units 10/05/19 22:00 10/06/19 21:52 Lantus SUB-Q 15 units QHS RADHA Administration Insulin Human Regular 0 units 10/05/19 12:30 10/07/19 09:15 Humulin R SUB-Q 2 units ACHS RADHA Administration Protocol Lorazepam 4 mg 10/05/19 13:46 Ativan IV Q1H PRN CIWA-Ar 16-25 Lorazepam 4 mg 10/05/19 13:46 Ativan PO Q1H PRN CIWA-Ar 16-25 Lorazepam 2 mg 10/05/19 14:05 10/06/19 14:27 Ativan PO 2 mg Q1H PRN Administration CIWA-Ar 8-15 Lorazepam 2 mg 10/05/19 15:47 10/07/19 11:10 Ativan IV 2 mg Q1H PRN Administration CIWA-Ar 8-15 Magnesium Hydroxide 30 ml 10/05/19 09:10 Milk Of Magnesia PO Q4H PRN Constipation Metoclopramide HCl 10 mg 10/05/19 09:10 Reglan PO Q6H PRN Nausea And Vomiting Nicotine 21 mg 10/05/19 10:00 10/07/19 10:52 Habitrol TD 21 mg QDAY RADHA Administration Ondansetron HCl 4 mg 10/05/19 09:10 Zofran IV Q8H PRN Nausea And Vomiting Oxycodone/Acetaminophen 1 tab 10/05/19 09:10 10/06/19 14:19 Percocet 5/325 PO 1 tab Q6H PRN Administration Pain, Moderate (4-6) Promethazine HCl 25 mg 10/05/19 09:10 Phenergan SC Q6H PRN Nausea And Vomiting Quetiapine Fumarate 50 mg 10/06/19 22:00 10/07/19 10:51 Seroquel PO 50 mg BID RADHA Administration Sertraline HCl 25 mg 10/06/19 16:00 10/07/19 11:03 Zoloft PO 25 mg QDAY RADHA Administration Sodium Chloride 10 ml 10/05/19 10:00 10/07/19 10:57 Sodium Chloride Flush Syringe 10 Ml IV 10 ml BID RADHA Administration Sodium Chloride 10 ml 10/05/19 09:10 Sodium Chloride Flush Syringe 10 Ml IV PRN PRN LINE FLUSH Thiamine HCl 100 mg 10/06/19 10:00 10/07/19 11:05 Vitamin B-1 PO 100 mg QDAY RADHA Administration Trazodone HCl 50 mg 10/06/19 22:00 10/06/19 21:52 Desyrel PO 50 mg QHS RADHA Administration
--- NOTE | 2019-10-07 13:14 | Magnetic Resonance Report ---
NONENHANCED MR SCAN OF THE BRAIN: INDICATION / CLINICAL INFORMATION: MAIN: cva--left side numbness. TECHNIQUE: Multiplanar, multisequence MR images of the brain were noncontrast MRI brain normal brain MR obtained . COMPARISON: CT scan of the head from 10/05/2019 FINDINGS: Maney of these images are marred by motion related artifacts which limit this MRI scan. BRAIN / INTRACRANIAL CONTENTS: No acute ischemia, acute hemorrhage, mass effect, midline shift, or hy drocephalus. No chronic infarct or focal area of encephalomalacia. Scattered nonspecific deep hemisp heric white matter lesions are seen probably due to chronic vascular disease. CRANIOCERVICAL JUNCTION: No significant abnormality. VASCULAR FLOW-VOIDS: No significant abnormality. ORBITS: No significant abnormality of visualized orbits. SINUSES / MASTOIDS: Mucosal thickening is seen in the ethmoid air cells. ADDITIONAL FINDINGS: None. IMPRESSION: Acute parenchymal lesion Motion related artifacts obscuring the details Signer Name: Melissa Bar MD Signed: 10/07/2019 1:10 PM Workstation Name: [id number]
--- NOTE | 2019-10-07 13:33 | Progress Note ---
Subjective - Reason for Consult Consult date: 10/07/19 Reason for consult: suicidal ideatioin - Chief Complaint Chief complaint: During my interview with the patient today, he is sitting up in bed. He is eating. He appears slightly drowsy. A sitter is at bedside. The patient makes intermittent eye contact. He is a/o x 3. His affect is restricted. The patient states "I'm not doing too good." He verbalizes "not feeling any better" and still having "suicidal thoughts." He denies a plan today. The patient says he's having hallucinations but "not any new ones." He says "the voices are just whispering." Mr. Zhong says if he goes home he "will wander around and likely hurt myself." He says he slept "okay" and his appetite is "okay." ROS: Constitutional: Negative for weight loss ENT: Negative for stridor Respiratory: Negative for cough or hemoptysis All other systems reviewed and are negative MENTAL STATUS General Appearance: Dressed appropriately Behavior: calm and cooperative, intermittent eye contact Mood: "not doing good" Affect: Restricted Thought Process: Goal-directed Speech: Normal tone and pace Suicidal Ideation: Yes Homicidal Ideation: Denies Hallucinations: Auditory Delusions: None elicited Insight and Judgment: Limited Memory/Cognition: Fair, drowsy Diagnoses: Bipolar Disorder, Current Episode Depressed, Severe w/Psychotic Features Plan Increased Seroquel 100mg po BID to decrease hallucinations and depressive symptoms Medical: Per primary Sitter: Defer to primary Disposition: The patient meets the requirement for acute inpatient hospitalization. He may transfer to an acute psychiatric facility once medically clear. The treatment plan, including medication benefits and side effects were discussed with the patient. He verbalizes understanding and agreement of plan. Will continue to follow the patient until transferred or until his condition improves enough for discharge Please call with any questions or concerns. Thank you for this consult. Mental Status Exam - Vital signs Last Vital Signs Temp 98.0 F 10/07/19 10:44 Pulse 73 10/07/19 11:04 Resp 19 10/07/19 10:44 BP 149/71 10/07/19 11:04 Pulse Ox 98 10/07/19 10:44
[2019-10-07] MEDS: QUEtiapine 100 MG TAB PO SCH ×2 (13:52→22:17)
[2019-10-07] MEDS: traZODone 50 MG TAB PO SCH (22:11)
[2019-10-07] MEDS: INSULIN GLARGINE 100 UNITS/ML SUB-Q SCH (22:12)
[2019-10-08] MEDS: INSULIN REGULAR, HUMAN 100 UNITS/1 ML SUB-Q SCH ×4 (07:30→23:22)
[2019-10-08] MEDS: oxyCODONE /ACETAMINOPHEN 5-325MG TAB PO PRN ×3 (08:06→20:26)
--- NOTE | 2019-10-08 08:48 | Progress Note ---
Assessment and Plan Assessment and plan: Suicidal ideation. Per psychiatry CVA. Patient has no lateralizing signs or symptoms presently. No weakness. CT scan head negative. EtOH abuse. Continue CIWA protocol. Polysubstance abuse. Patient with history of heroin and cocaine abuse. Continue supportive care and withdrawal protocols. Tobacco abuse. Patient counseled on tobacco cessation. 3/7check MRI and echocardiogram for further evaluation regarding CVA symptoms. Patient will be continued on CIWA protocol. Psychiatry evaluated the patient and initiated Zoloft, Seroquel, Depakote and trazodone. Also, psychiatry recommends acute inpatient psychiatric facility at discharge. 8follow-up MRI and echocardiogram. Continue CIWA protocol. Patient still experiencing suicidal ideation. Psychiatry increased Seroquel to 100 mg twice daily to reduce hallucinations. History Interval history: No new issues overnight. Hospitalist Physical - Constitutional Vitals: Temp Pulse Resp BP Pulse Ox 98.0 F 74 18 133/82 99 10/07/19 23:21 10/07/19 23:21 10/07/19 23:21 10/07/19 23:21 10/07/19 23:21 General appearance: Present: other (Anxious disheveled significant temporal wasting) - EENT Eyes: Present: PERRL, EOM intact ENT: hearing intact, clear oral mucosa, dentition normal - Neck Neck: Present: supple, normal ROM - Respiratory Respiratory effort: normal Respiratory: bilateral: CTA - Cardiovascular Rhythm: regular Heart Sounds: Present: S1 & S2. Absent: gallop, rub - Extremities Extremities: no ischemia, No edema, Full ROM - Abdominal General gastrointestinal: soft, non-tender, non-distended, normal bowel sounds - Integumentary Integumentary: Present: clear, warm, dry - Neurologic Neurologic: CNII-XII intact, moves all extremities Results - Labs CBC & Chem 7: 10/06/19 07:10 10/06/19 04:48 Labs: Laboratory Last Values WBC 6.5 K/mm3 (4.5-11.0) 10/06/19 07:10 RBC 4.97 M/mm3 (3.65-5.03) 10/06/19 07:10 Hgb 14.8 gm/dl (11.8-15.2) 10/06/19 07:10 Hct 44.2 % (35.5-45.6) 10/06/19 07:10 MCV 89 fl (84-94) 10/06/19 07:10 MCH 30 pg (28-32) 10/06/19 07:10 MCHC 34 % (32-34) 10/06/19 07:10 RDW 13.8 % (13.2-15.2) 10/06/19 07:10 Plt Count 361 K/mm3 (140-440) 10/06/19 07:10 Lymph % (Auto) 20.9 % (13.4-35.0) 10/06/19 07:10 [place] % (Auto) 6.5 % (0.0-7.3) 10/06/19 07:10 Eos % (Auto) 0.3 % (0.0-4.3) 10/06/19 07:10 Baso % (Auto) 0.3 % (0.0-1.8) 10/06/19 07:10 Lymph # 1.4 K/mm3 (1.2-5.4) 10/06/19 07:10 [place] # 0.4 K/mm3 (0.0-0.8) 10/06/19 07:10 Eos # 0.0 K/mm3 (0.0-0.4) 10/06/19 07:10 Baso # 0.0 K/mm3 (0.0-0.1) 10/06/19 07:10 Seg Neutrophils % 72.0 % (40.0-70.0) H 10/06/19 07:10 Seg Neutrophils # 4.7 K/mm3 (1.8-7.7) 10/06/19 07:10 VBG pH 7.437 (7.320-7.420) H 10/05/19 03:10 Sodium 136 mmol/L (137-145) L D 10/06/19 04:48 Potassium 4.1 mmol/L (3.6-5.0) 10/06/19 04:48 Chloride 99.9 mmol/L (98-107) 10/06/19 04:48 Carbon Dioxide 22 mmol/L (22-30) 10/06/19 04:48 Anion Gap 18 mmol/L 10/06/19 04:48 BUN 13 mg/dL (9-20) 10/06/19 04:48 Creatinine 0.7 mg/dL (0.8-1.5) L 10/06/19 04:48 Estimated GFR > 60 ml/min 10/06/19 04:48 BUN/Creatinine Ratio 19 % 10/06/19 04:48 Glucose 147 mg/dL (75-100) H 10/06/19 04:48 POC Glucose 106 (70-105) H 10/08/19 07:49 Calcium 9.2 mg/dL (8.4-10.2) 10/06/19 04:48 Phosphorus 3.20 mg/dL (2.5-4.5) 10/05/19 14:21 Total Bilirubin 0.20 mg/dL (0.1-1.2) 10/05/19 20:14 Direct Bilirubin < 0.2 mg/dL (0-0.2) 10/05/19 14:21 Indirect Bilirubin 0.2 mg/dL 10/05/19 14:21 AST 19 units/L (5-40) 10/05/19 20:14 ALT 17 units/L (7-56) 10/05/19 20:14 Alkaline Phosphatase 93 units/L (35-129) 10/05/19 20:14 Ammonia 48.0 umol/L (25-60) 10/05/19 14:21 Total Protein 6.9 g/dL (6.3-8.2) 10/05/19 20:14 Albumin 3.4 g/dL (3.9-5) L 10/05/19 20:14 Albumin/Globulin Ratio 1.0 % 10/05/19 20:14 TSH 0.738 mlU/mL (0.270-4.200) 10/05/19 03:10 Urine Opiates Screen Presumptive negative 10/05/19 04:00 Urine Methadone Screen Presumptive negative 10/05/19 04:00 Ur Barbiturates Screen Presumptive negative 10/05/19 04:00 Ur Phencyclidine Scrn Presumptive negative 10/05/19 04:00 Ur Amphetamines Screen Presumptive negative 10/05/19 04:00 U Benzodiazepines Scrn Presumptive negative 10/05/19 04:00 Urine Cocaine Screen Presumptive positive 10/05/19 04:00 U Marijuana (THC) Screen Presumptive negative 10/05/19 04:00 Drugs of Abuse Note Disclamer 10/05/19 04:00 Plasma/Serum Alcohol < 0.01 % (0-0.07) 10/05/19 04:11 Active Medications - Current Medications Current Medications: Generic Name Dose Route Start Last Admin Trade Name Freq PRN Reason Stop Dose Admin Acetaminophen 650 mg 10/05/19 09:10 Tylenol PO Q4H PRN Pain MILD(1-3)/Fever >100.5/PRECIADO Aspirin 325 mg 10/06/19 10:00 10/07/19 10:48 Ecotrin PO 325 mg QDAY RADHA Administration Atenolol 50 mg 10/05/19 10:00 10/07/19 11:04 Tenormin PO 50 mg QDAY RADHA Administration Azithromycin 250 mg 10/05/19 10:00 10/07/19 10:51 Zithromax PO 10/08/19 10:01 250 mg DAILY RADHA Administration Bisacodyl 10 mg 10/05/19 09:10 Dulcolax [place] QDAY PRN Constipation Divalproex Sodium 125 mg 10/06/19 16:00 10/07/19 22:[address] PO Not Given BID RADHA Enoxaparin Sodium 40 mg 10/05/19 10:00 10/07/19 11:14 Enoxaparin SUB-Q 40 mg QDAY@1000 RADHA Administration Famotidine 20 mg 10/05/19 10:00 10/07/19 22:11 Pepcid PO 20 mg BID [facility] Administration Insulin Glargine 15 units 10/05/19 22:00 10/07/19 22:12 Lantus SUB-Q 15 units QHS [facility] Administration Insulin Human Regular 0 units 10/05/19 12:30 10/08/19 07:30 Humulin R SUB-Q Not Given ACHS [facility] Protocol Lorazepam 4 mg 10/05/19 13:46 Ativan IV Q1H PRN CIWA-Ar 16-25 Lorazepam 4 mg 10/05/19 13:46 Ativan PO Q1H PRN CIWA-Ar 16-25 Lorazepam 2 mg 10/05/19 14:05 10/06/19 14:27 Ativan PO 2 mg Q1H PRN Administration CIWA-Ar 8-15 Lorazepam 2 mg 10/05/19 15:47 10/07/19 11:10 Ativan IV 2 mg Q1H PRN Administration CIWA-Ar 8-15 Magnesium Hydroxide 30 ml 10/05/19 09:10 Milk Of Magnesia PO Q4H PRN Constipation Metoclopramide HCl 10 mg 10/05/19 09:10 Reglan PO Q6H PRN Nausea And Vomiting Nicotine 21 mg 10/05/19 10:00 10/07/19 10:52 Habitrol TD 21 mg QDAY RADHA Administration Ondansetron HCl 4 mg 10/05/19 09:10 Zofran IV Q8H PRN Nausea And Vomiting Oxycodone/Acetaminophen 1 tab 10/05/19 09:10 10/08/19 08:06 Percocet 5/325 PO 1 tab Q6H PRN Administration Pain, Moderate (4-6) Promethazine HCl 25 mg 10/05/19 09:10 Phenergan [place] Q6H PRN Nausea And Vomiting Quetiapine Fumarate 100 mg 10/07/19 14:00 10/07/19 22:17 Seroquel PO 100 mg BID RADHA Administration Sertraline HCl 25 mg 10/06/19 16:00 10/07/19 11:03 Zoloft PO 25 mg QDAY RADHA Administration Sodium Chloride 10 ml 10/05/19 10:00 10/07/19 22:18 Sodium Chloride Flush Syringe 10 Ml IV 10 ml BID RADHA Administration Sodium Chloride 10 ml 10/05/19 09:10 Sodium Chloride Flush Syringe 10 Ml IV PRN PRN LINE FLUSH Thiamine HCl 100 mg 10/06/19 10:00 10/07/19 11:05 Vitamin B-1 PO 100 mg QDAY RADHA Administration Trazodone HCl 50 mg 10/06/19 22:00 10/07/19 22:11 Desyrel PO 50 mg QHS RADHA Administration
--- NOTE | 2019-10-08 09:02 | Discharge Summary ---
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 The patient denies any issues of prolonged bleeding or elevated venous pressures recently. The patient states that her center refused to cannulate due to thin skin overlying the body of the AV fistula. Vascular surgery consulted to evaluate the patient's AV fistula and felt that she would benefit from revision of her access at some point but not immediately necessary at this time. Vascular surgery reported that the AV fistula was okay to use for dialysis at this time. The patient received hemodialysis last evening and will be discharged home today. Patient is to follow-up with her regular dialysis schedule at her center next week. Dedicated discharge time 32 minutes. Disposition: -01 TO HOME OR SELFCARE Time spent for discharge: 32 - Discharge Diagnoses (1) Dialysis AV fistula malfunction Status: Acute Core Measure Documentation - Palliative Care Palliative Care/ Comfort Measures: Not Applicable - Core Measures Any of the following diagnoses?: none Exam - Constitutional Vitals: Temp Pulse Resp BP Pulse Ox 98.0 F 74 18 133/82 99 10/07/19 23:21 10/07/19 23:21 10/07/19 23:21 10/07/19 23:21 10/07/19 23:21 General appearance: Present: no acute distress, well-nourished - EENT Eyes: Present: PERRL ENT: hearing intact, clear oral mucosa - Neck Neck: Present: supple, normal ROM - Respiratory Respiratory effort: normal Respiratory: bilateral: CTA - Cardiovascular Heart Sounds: Present: S1 & S2. Absent: rub, click - Extremities Extremities: pulses symmetrical, No edema Peripheral Pulses: within normal limits - Abdominal General gastrointestinal: Present: soft, non-tender, non-distended, normal bowel sounds Male genitourinary: Present: normal - Integumentary Integumentary: Present: clear, warm, dry - Musculoskeletal Musculoskeletal: gait normal, strength equal bilaterally - Psychiatric Psychiatric: appropriate mood/affect, intact judgment & insight - Neurologic Neurologic: CNII-XII intact, moves all extremities Plan Activity: advance as tolerated Weight Bearing Status: Weight Bear as Tolerated Diet: renal Follow up with: PRIMARY CARE, [Primary Care Provider] - 3-5 Days RAFAEL TOLENTINO MD [Staff Physician] - 7 Days
[2019-10-08] MEDS: AZITHROMYCIN 250 MG TAB PO SCH (09:51)
[2019-10-08] MEDS: FAMOTIDINE 20 MG TAB PO SCH ×2 (09:51→23:21)
[2019-10-08] MEDS: NICOTINE 21 MG/24 HR PATCH TD SCH (09:51)
[2019-10-08] MEDS: ASPIRIN EC 325 MG TAB PO SCH (09:51)
[2019-10-08] MEDS: atenoloL 50 MG TAB PO SCH (09:51)
[2019-10-08] MEDS: DIVALPROEX DR 125 MG TAB PO SCH ×2 (09:51→23:21)
[2019-10-08] MEDS: SERTRALINE 25 MG TAB PO SCH (09:52)
[2019-10-08] MEDS: ENOXAPARIN 40 MG/0.4 ML INJ SUB-Q SCH (09:52)
[2019-10-08] MEDS: QUEtiapine 100 MG TAB PO SCH ×2 (09:52→23:21)
[2019-10-08] MEDS: THIAMINE 100 MG TAB PO SCH (09:52)
--- NOTE | 2019-10-08 11:34 | Progress Note ---
Subjective - Reason for Consult Consult date: 10/08/19 Reason for consult: suicidal ideation - Chief Complaint Chief complaint: During my interview with the patient today, the patient is lying in bed. Asleep. He easily arouses. He is oriented x 3. The patient becomes upset at me awakening him. He states, "I'm fine. I'm trying to sleep." I informed the patient that he was not admitted to sleep. The patient replies, "yes I am. I am a medical patient." After advising the patient he needed to answer some questions, he replied, "I'm talking aint I." The patient's history of symptoms is conflicting. He denies SI/HI, stating, "no, not right now." When asking about hallucinations the patient replies, "yes, I hear voices saying get him. There he is." When inquiring about how long the patient has been experiencing hallucinations or suicidal ideation, he replies "a few months to a year." He initially told me he was suicidal "about two weeks." The patient says his appetite is "strong." He says he's "slept on and off if people would stay out." When informing the patient that he would more than likely be discharged today due to his improvement and not having any suicidal thoughts, he replies, "well, I didn't say that. That could change." ROS: Constitutional: Negative for weight loss ENT: Negative for stridor Respiratory: Negative for cough or hemoptysis All other systems reviewed and are negative MENTAL STATUS General Appearance: Dressed appropriately, sleeping Behavior: avoidant, hesitant to cooperate, irritable Mood: "Fine" Affect: Restricted Thought Process: Goal-directed Speech: Normal tone and pace Suicidal Ideation: Denies Homicidal Ideation: Denies Hallucinations: Auditory for a few months to a year Delusions: None elicited Insight and Judgment: Limited Memory/Cognition: Fair, drowsy Diagnoses: Bipolar Disorder, Current Episode Depressed, Severe w/Psychotic Features Plan Scripts Seroquel 100mg po BID Trazdodone 50mg po qhs Zoloft 25mg po daily Nicotine patch 21mg daily Medical: Per primary Sitter: Defer to primary Disposition: The patient does not meet the requirement for acute inpatient hospitalization. He may discharge once medically clear. The patient denies SI/HI at present, and has no acute psychosis, but verbalizes suicidal thoughts and hallucinations for a few months to a year. Due to conflicting information given about his symptoms, and his reluctance to cooperate with the interview this morning: it is my clinical opinion that the patient is malingering. The patient's symptoms can be managed on an outpatient basis. Dr. Randolph consulted, agrees with plan. It was explained to the patient that if SI/HI or any feelings of self harm or endangerment are to arise, he is to see immediate assistance including, but not limited to the suicide hotline, 911, and/or ER. The patient counseled to abstain from all illicit drugs, and alcohol. The team otr truck driver to further discuss safety plan, and give the patient outpatient resources for outpatient psychiatry, including cognitive behavior therapy, and drug rehabilitation programs. The treatment plan, including medication benefits and side effects were discussed with the patient. The patient verbalizes understanding of treatment plan, including benefits and side effects of medications. Will sign off. Please call with any questions or concerns. Thank you for this consult. Mental Status Exam - Vital signs Last Vital Signs Temp 98.0 F 10/07/19 23:21 Pulse 74 10/08/19 09:51 Resp 18 10/07/19 23:21 BP 130/82 10/08/19 09:51 Pulse Ox 99 10/07/19 23:21
[2019-10-08] MEDS: INSULIN GLARGINE 100 UNITS/ML SUB-Q SCH (22:20)
[2019-10-08] MEDS: traZODone 50 MG TAB PO SCH (23:21)
[2019-10-09] MEDS: INSULIN REGULAR, HUMAN 100 UNITS/1 ML SUB-Q SCH ×4 (08:13→21:50)
--- NOTE | 2019-10-09 08:48 | Progress Note ---
Assessment and Plan Assessment and plan: Suicidal ideation. Per psychiatry CVA. Patient has no lateralizing signs or symptoms presently. No weakness. CT scan head negative. EtOH abuse. Continue CIWA protocol. Polysubstance abuse. Patient with history of heroin and cocaine abuse. Continue supportive care and withdrawal protocols. Tobacco abuse. Patient counseled on tobacco cessation. 37check MRI and echocardiogram for further evaluation regarding CVA symptoms. Patient will be continued on CIWA protocol. Psychiatry evaluated the patient and initiated Zoloft, Seroquel, Depakote and trazodone. Also, psychiatry recommends acute inpatient psychiatric facility at discharge. 10/07follow-up MRI and echocardiogram. Continue CIWA protocol. Patient still experiencing suicidal ideation. Psychiatry increased Seroquel to 100 mg twice daily to reduce hallucinations. 10/08MRI and echocardiogram to be completed today. Continue CIWA protocol as needed. Psychiatry reports patient does not meet requirement for acute inpatient hospitalization any longer. Psychiatry feels that the patient is malingering and that symptoms may be managed on an outpatient basis. It was explained to the patient that if SI/HI or any feelings of self harm or endangerment are to arise, he is to see immediate assistance including, but not limited to the suicide hotline, 911, and/or ER. The patient counseled to abstain from all illicit drugs, and alcohol. Anticipate discharge later today or in a.m. - Patient Problems (1) Dialysis AV fistula malfunction Current Visit: Yes Status: Acute History Interval history: No new issues overnight. Hospitalist Physical - Constitutional Vitals: Temp Pulse Resp BP Pulse Ox 97.5 F L 59 L 18 121/58 98 10/09/19 03:59 10/09/19 03:59 10/09/19 03:59 10/09/19 03:59 10/09/19 03:59 General appearance: Present: other (Anxious disheveled significant temporal wasting) - EENT Eyes: Present: PERRL, EOM intact ENT: hearing intact, clear oral mucosa, dentition normal - Neck Neck: Present: supple, normal ROM - Respiratory Respiratory effort: normal Respiratory: bilateral: CTA - Cardiovascular Rhythm: regular Heart Sounds: Present: S1 & S2. Absent: gallop, rub - Extremities Extremities: no ischemia, No edema, Full ROM - Abdominal General gastrointestinal: soft, non-tender, non-distended, normal bowel sounds - Integumentary Integumentary: Present: clear, warm, dry - Neurologic Neurologic: CNII-XII intact, moves all extremities Results - Labs CBC & Chem 7: 10/06/19 07:10 10/06/19 04:48 Labs: Laboratory Last Values WBC 6.5 K/mm3 (4.5-11.0) 10/06/19 07:10 RBC 4.97 M/mm3 (3.65-5.03) 10/06/19 07:10 Hgb 14.8 gm/dl (11.8-15.2) 10/06/19 07:10 Hct 44.2 % (35.5-45.6) 10/06/19 07:10 MCV 89 fl (84-94) 10/06/19 07:10 MCH 30 pg (28-32) 10/06/19 07:10 MCHC 34 % (32-34) 10/06/19 07:10 RDW 13.8 % (13.2-15.2) 10/06/19 07:10 Plt Count 361 K/mm3 (140-440) 10/06/19 07:10 Lymph % (Auto) 20.9 % (13.4-35.0) 10/06/19 07:10 [place] % (Auto) 6.5 % (0.0-7.3) 10/06/19 07:10 Eos % (Auto) 0.3 % (0.0-4.3) 10/06/19 07:10 Baso % (Auto) 0.3 % (0.0-1.8) 10/06/19 07:10 Lymph # 1.4 K/mm3 (1.2-5.4) 10/06/19 07:10 [place] # 0.4 K/mm3 (0.0-0.8) 10/06/19 07:10 Eos # 0.0 K/mm3 (0.0-0.4) 10/06/19 07:10 Baso # 0.0 K/mm3 (0.0-0.1) 10/06/19 07:10 Seg Neutrophils % 72.0 % (40.0-70.0) H 10/06/19 07:10 Seg Neutrophils # 4.7 K/mm3 (1.8-7.7) 10/06/19 07:10 VBG pH 7.437 (7.320-7.420) H 10/05/19 03:10 Sodium 136 mmol/L (137-145) L D 10/06/19 04:48 Potassium 4.1 mmol/L (3.6-5.0) 10/06/19 04:48 Chloride 99.9 mmol/L (98-107) 10/06/19 04:48 Carbon Dioxide 22 mmol/L (22-30) 10/06/19 04:48 Anion Gap 18 mmol/L 10/06/19 04:48 BUN 13 mg/dL (9-20) 10/06/19 04:48 Creatinine 0.7 mg/dL (0.8-1.5) L 10/06/19 04:48 Estimated GFR > 60 ml/min 10/06/19 04:48 BUN/Creatinine Ratio 19 % 10/06/19 04:48 Glucose 147 mg/dL (75-100) H 10/06/19 04:48 POC Glucose 161 (70-105) H 10/08/19 20:58 Calcium 9.2 mg/dL (8.4-10.2) 10/06/19 04:48 Phosphorus 3.20 mg/dL (2.5-4.5) 10/05/19 14:21 Total Bilirubin 0.20 mg/dL (0.1-1.2) 10/05/19 20:14 Direct Bilirubin < 0.2 mg/dL (0-0.2) 10/05/19 14:21 Indirect Bilirubin 0.2 mg/dL 10/05/19 14:21 AST 19 units/L (5-40) 10/05/19 20:14 ALT 17 units/L (7-56) 10/05/19 20:14 Alkaline Phosphatase 93 units/L (35-129) 10/05/19 20:14 Ammonia 48.0 umol/L (25-60) 10/05/19 14:21 Total Protein 6.9 g/dL (6.3-8.2) 10/05/19 20:14 Albumin 3.4 g/dL (3.9-5) L 10/05/19 20:14 Albumin/Globulin Ratio 1.0 % 10/05/19 20:14 TSH 0.738 mlU/mL (0.270-4.200) 10/05/19 03:10 Urine Opiates Screen Presumptive negative 10/05/19 04:00 Urine Methadone Screen Presumptive negative 10/05/19 04:00 Ur Barbiturates Screen Presumptive negative 10/05/19 04:00 Ur Phencyclidine Scrn Presumptive negative 10/05/19 04:00 Ur Amphetamines Screen Presumptive negative 10/05/19 04:00 U Benzodiazepines Scrn Presumptive negative 10/05/19 04:00 Urine Cocaine Screen Presumptive positive 10/05/19 04:00 U Marijuana (THC) Screen Presumptive negative 10/05/19 04:00 Drugs of Abuse Note Disclamer 10/05/19 04:00 Plasma/Serum Alcohol < 0.01 % (0-0.07) 10/05/19 04:11 Active Medications - Current Medications Current Medications: Generic Name Dose Route Start Last Admin Trade Name Freq PRN Reason Stop Dose Admin Acetaminophen 650 mg 10/05/19 09:10 Tylenol PO Q4H PRN Pain MILD(1-3)/Fever >100.5/PRECIADO Aspirin 325 mg 10/06/19 10:00 10/08/19 09:51 Ecotrin PO 325 mg QDAY RADHA Administration Atenolol 50 mg 10/05/19 10:00 10/08/19 09:51 Tenormin PO 50 mg QDAY RADAH Administration Bisacodyl 10 mg 10/05/19 09:10 Dulcolax [place] QDAY PRN Constipation Divalproex Sodium 125 mg 10/06/19 16:00 10/08/19 23:[address] PO 125 mg BID RADHA Administration Enoxaparin Sodium 40 mg 10/05/19 10:00 10/08/19 09:52 Enoxaparin SUB-Q 40 mg QDAY@1000 RADHA Administration Famotidine 20 mg 10/05/19 10:00 10/08/19 23:21 Pepcid PO 20 mg BID RADHA Administration Insulin Glargine 15 units 10/05/19 22:00 10/08/19 22:20 Lantus SUB-Q 15 units QHS RADHA Administration Insulin Human Regular 0 units 10/05/19 12:30 10/09/19 08:13 Humulin R SUB-Q 4 units ACHS RADHA Administration Protocol Lorazepam 4 mg 10/05/19 13:46 Ativan IV Q1H PRN CIWA-Ar 16-25 Lorazepam 4 mg 10/05/19 13:46 Ativan PO Q1H PRN CIWA-Ar 16-25 Lorazepam 2 mg 10/05/19 14:05 10/06/19 14:27 Ativan PO 2 mg Q1H PRN Administration CIWA-Ar 8-15 Lorazepam 2 mg 10/05/19 15:47 10/07/19 11:10 Ativan IV 2 mg Q1H PRN Administration CIWA-Ar 8-15 Magnesium Hydroxide 30 ml 10/05/19 09:10 Milk Of Magnesia PO Q4H PRN Constipation Metoclopramide HCl 10 mg 10/05/19 09:10 Reglan PO Q6H PRN Nausea And Vomiting Nicotine 21 mg 10/05/19 10:00 10/08/19 09:51 Habitrol TD 21 mg QDAY RADHA Administration Ondansetron HCl 4 mg 10/05/19 09:10 Zofran IV Q8H PRN Nausea And Vomiting Oxycodone/Acetaminophen 1 tab 10/05/19 09:10 10/08/19 20:26 Percocet 5/325 PO 1 tab Q6H PRN Administration Pain, Moderate (4-6) Promethazine HCl 25 mg 10/05/19 09:10 Phenergan [place] Q6H PRN Nausea And Vomiting Quetiapine Fumarate 100 mg 10/07/19 14:00 10/08/19 23:21 Seroquel PO 100 mg BID RADHA Administration Sertraline HCl 25 mg 10/06/19 16:00 10/08/19 09:52 Zoloft PO 25 mg QDAY RADAH Administration Sodium Chloride 10 ml 10/05/19 10:00 10/08/19 23:23 Sodium Chloride Flush Syringe 10 Ml IV 10 ml BID RADHA Administration Sodium Chloride 10 ml 10/05/19 09:10 Sodium Chloride Flush Syringe 10 Ml IV PRN PRN LINE FLUSH Thiamine HCl 100 mg 10/06/19 10:00 10/08/19 09:52 Vitamin B-1 PO 100 mg QDAY RADHA Administration Trazodone HCl 50 mg 10/06/19 22:00 10/08/19 23:21 Desyrel PO 50 mg QHS RADHA Administration
[2019-10-09] MEDS: ASPIRIN EC 325 MG TAB PO SCH (10:00)
[2019-10-09] MEDS: atenoloL 50 MG TAB PO SCH (10:00)
[2019-10-09] MEDS: FAMOTIDINE 20 MG TAB PO SCH ×2 (10:00→21:49)
[2019-10-09] MEDS: QUEtiapine 100 MG TAB PO SCH ×2 (10:00→21:49)
[2019-10-09] MEDS: SERTRALINE 25 MG TAB PO SCH (10:00)
[2019-10-09] MEDS: NICOTINE 21 MG/24 HR PATCH TD SCH (10:01)
[2019-10-09] MEDS: ENOXAPARIN 40 MG/0.4 ML INJ SUB-Q SCH (10:01)
[2019-10-09] MEDS: DIVALPROEX DR 125 MG TAB PO SCH ×2 (10:01→21:49)
[2019-10-09] MEDS: THIAMINE 100 MG TAB PO SCH (10:05)
[2019-10-09] MEDS: oxyCODONE /ACETAMINOPHEN 5-325MG TAB PO PRN ×2 (14:23→20:23)
[2019-10-09] MEDS: traZODone 50 MG TAB PO SCH (21:49)
[2019-10-09] MEDS: INSULIN GLARGINE 100 UNITS/ML SUB-Q SCH (21:50)
[2019-10-10] MEDS: oxyCODONE /ACETAMINOPHEN 5-325MG TAB PO PRN ×2 (03:42→09:52)
[2019-10-10] MEDS: INSULIN REGULAR, HUMAN 100 UNITS/1 ML SUB-Q SCH ×2 (08:38→12:49)
[2019-10-10] MEDS: DIVALPROEX DR 125 MG TAB PO SCH (09:53)
[2019-10-10] MEDS: ASPIRIN EC 325 MG TAB PO SCH (09:54)
[2019-10-10] MEDS: ENOXAPARIN 40 MG/0.4 ML INJ SUB-Q SCH (09:54)
[2019-10-10] MEDS: FAMOTIDINE 20 MG TAB PO SCH (09:54)
[2019-10-10] MEDS: THIAMINE 100 MG TAB PO SCH (09:54)
[2019-10-10] MEDS: atenoloL 50 MG TAB PO SCH (09:54)
[2019-10-10] MEDS: SERTRALINE 25 MG TAB PO SCH (09:54)
[2019-10-10] MEDS: QUEtiapine 100 MG TAB PO SCH (09:54)
[2019-10-10] MEDS: NICOTINE 21 MG/24 HR PATCH TD SCH (09:55)
[2019-10-10 09:56] VITALS: BP 135/76
--- NOTE | 2019-10-10 11:22 | Discharge Summary ---
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 Follow up with PCP or [facility] in 1 week Follow up with: PRIMARY CAREMD [Primary Care Provider] - 3-5 Days RAFAEL TOLENTINO MD [Staff Physician] - 7 Days Prescriptions: traZODone [Desyrel] 50 mg PO QHS #30 tab Folic Acid [Folvite] 1 mg PO QDAY #30 tablet metFORMIN [Glucophage] 500 mg PO BID #60 tablet Nicotine [Habitrol] 21 mg TD DAILY #30 patch Famotidine [Pepcid] 20 mg PO BID #60 tablet QUEtiapine [SEROquel] 100 mg PO BID #60 tab Thiamine [Vitamin B-1] 100 mg PO QDAY #30 tablet Sertraline [Zoloft] 25 mg PO QDAY #30 tab
--- NOTE | 2019-10-10 12:07 | Progress Note ---
Subjective - Reason for Consult Consult date: 10/10/19 Reason for consult: psychiatric assessment - Chief Complaint Chief complaint: During my interview with the patient today, the patient is lying in bed awake alert oriented x3 he is able to make his needs known he is dressed appropriately for the occasion he maintains eye contact. 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 noriega, I was only suicidal because of my hand and i am feeling better". The patient contracts for safety and states that he knew where and how to get help if he believe he is sucidial. The patient denies homicidal ideations. The patient denies visual or auditory hallucinations. The patient report that he is eating and sleeping well. The patient report that his depression is much better and he is doing well. ROS: Constitutional: Negative for weight loss ENT: Negative for stridor Respiratory: Negative for cough or hemoptysis All other systems reviewed and are negative MENTAL STATUS General Appearance: Dressed appropriately, sleeping Behavior: Calm and cooperative Mood: "Fine" Affect: Euthymic Thought Process: Goal-directed Speech: Normal tone and pace Suicidal Ideation: Denies Homicidal Ideation: Denies Hallucinations: Denies Delusions: None elicited Insight and Judgment: Limited Memory/Cognition: Fair Diagnoses: Bipolar Disorder, Current Episode Depressed, Severe w/Psychotic Features Plan Medical: Per primary Sitter: Defer to primary Disposition: D/C 1013 The patient does not meet the requirement for acute inpatient hospitalization. He may discharge once medically clear. The patient denies SI/HI at present, and has no acute psychosis. The patient's symptoms can be managed on an outpatient basis. Dr. Randolph consulted, agrees with plan. The patient counseled to abstain from all illicit drugs, and alcohol. The director power to further discuss safety plan, and give the patient outpatient resources for outpatient psychiatry, including cognitive behavior therapy, and drug rehabilitation programs. The treatment plan, including medication benefits and side effects were discussed with the patient. The patient verbalizes understanding of treatment plan, including benefits and side effects of medications. Will sign off. Please call with any questions or concerns. Thank you for this consult. Mental Status Exam - Vital signs Last Vital Signs Temp 98.2 F 03/10/20 09:51 Pulse 71 10/10/19 09:54 Resp 20 10/10/19 09:51 BP 135/76 10/10/19 09:54 Pulse Ox 100 10/10/19 09:51
== END 2019-10-10 13:41 | disposition home or self-care (01) | DRG 948 ==
LOC: ED 22:02 → 3A 10-05 07:20
PROVIDERS: ADMIT Internal Medicine; ATTEND Internal Medicine
DX: R53.1 Weakness (principal); E46 Unspecified protein-calorie malnutrition; F10.10 Alcohol abuse, uncomplicated; F11.90 Opioid use, unspecified, uncomplicated; J44.9 Chronic obstructive pulmonary disease, unspecified; F19.10 Other psychoactive substance abuse, uncomplicated; E11.9 Type 2 diabetes mellitus without complications; F17.210 Nicotine dependence, cigarettes, uncomplicated; I10 Essential (primary) hypertension; F20.9 Schizophrenia, unspecified; F43.10 Post-traumatic stress disorder, unspecified; F32.9 Major depressive disorder, single episode, unspecified; Z68.20 Body mass index [BMI] 20.0-20.9, adult; Z79.4 Long term (current) use of insulin; Z90.89 Acquired absence of other organs; Z90.49 Acquired absence of other specified parts of digestive tract; Z82.49 Family history of ischemic heart disease and other diseases of the circulatory system; Z71.6 Tobacco abuse counseling
CPT/HCPCS: 36415; 70450; 70551; 80048; 80053; 80076; 80307; 80320; 82140; 82805; 82962; 84100; 84443; 85025; 93005; 93010; 93306; G0378; G0480; J1650; J1815; J2060; J3411; Q0162